=== PATIENT | female | born 1970 | race African-American/Black ===

== ENCOUNTER 2021-02-07 16:43 | Emergency (ER) | payer BC ==
--- OUTSIDE RECORDS SUMMARY | 2021-02-07 16:45 | XMS REPORT | Continuity of Care Document ---
:1970 Author Organization [facility] t Address [address] [place] [address] Care Team Providers Name Role Phone Jose Minaya RN Attending Clinician Unavailable Singer HARRIS Attending Clinician TINO Attending Clinician Unavailable Payers Payer Name Policy Type Policy Number Effective Date Expiration Date S lacy [facility] - [id number] 2020 00:00:00 OUT OF STATE Problems This patient has no known problems. Allergies, Adverse Reactions, Alerts Allergy Allergy Status Severity Reaction(s) Onset Inactive Treating Comm ents Source Name Type Date Date Clinician NO KNOWN Drug Active Univers ALLERGIE Class ity of S [facility] Social History Social Habit Start Date Stop Date Quantity Comments Source Sex Assigned At Uni versity [facility] Exposure to SARS-CoV-2 Not sure [facility] [place] (event) [facility] Smoking Status Start Date Stop Date Source Unknown if ever smoked Universit y [facility] Medications Ordered Filled Start Stop Current Ordering Indication Dosage Frequency Signature Comments Components Source Medication Medication Date Date Medication? Clinician (SIG) Name Name benzonatate Yes [id number] 100mg Take 1 Univers 100 mg 2-02 capsule by ity of capsule 00:00: mouth 3 [place] 00 (three) Medical times Branch daily as needed for Cough. chlorphenir Yes [id number] 4mg Take 1 Univers amine 4 mg 2-02 tablet by ity of tablet 00:00: mouth [place] 00 every 6 Medical (six) Branch hours as needed for Allergies or Runny nose. multivitami Yes [id number] 1{capsu Take 1 Univers n capsule 2-02 le} capsule by ity of 00:00: mouth [place] 00 daily. Medical Branch calcium-mag Yes [id number] Take as Univers nesium-zinc 2-02 directed ity of 333-133-8.3 00:00: for daily [place] mg Tab 00 dose. Medical Branch ondansetron Yes [id number] 4mg Take 1 Univers 4 mg 2-02 tablet by ity of disintegrat 00:00: mouth [place] ing tablet 00 every 8 Medica l (eight) Branch hours as needed for Nausea and Vomiting (N/V). benzonatate Yes [id number] 100mg Take 1 Univers 100 mg 2-02 capsule by ity of capsule 00:00: mouth 3 [place] 00 (three) Medical times Branch daily as needed for Cough. chlorphenir Yes [id number] 4mg Take 1 Univers amine 4 mg 2-02 tablet by ity of tablet 00:00: mouth [place] 00 every 6 Medical (six) Branch hours as needed for Allergies or Runny nose. multivitami Yes [id number] 1{capsu Take 1 Univers n capsule 2-02 le} capsule by ity of 00:00: mouth [place] 00 daily. Medical Branch calcium-mag Yes [id number] Take as Univers nesium-zinc 2-02 directed ity of 333-133-8.3 00:00: for daily [place] mg Tab 00 dose. Medical Branch ondansetron Yes [id number] 4mg Take 1 Univers 4 mg 2-02 tablet by ity of disintegrat 00:00: mouth [place] ing tablet 00 every 8 Medica l (eight) Branch hours as needed for Nausea and Vomiting (N/V). One Touch One Touch 2020- No Aleksandra one strip [facility] Verio Verio -01 05-13 [place] [facility] Oscal Oscal Yes Aleksandra [address] [facility] 500/200 D-3 500/200 D-3 [place] with food [facility] Potassium Potassium Yes Aleksandra not [facility] Gluconate Gluconate [place] defined [facility] Trazodone Trazodone Yes Aleksandra [address] [facility] HCl HCl [place] at bedtime [facility] - as needed [facility] Vitamin D-3 Vitamin D-3 Yes Aleksandra [address] [facility] [place] [facility] Hydrochloro Hydrochloro Yes Aleksandra [address] [facility] thiazide thiazide [place] in the Luke s - morning [facility] Vitamin C Vitamin C Yes Aleksandra not [facility] [place] defined [facility] Estradiol Estradiol Yes Aleksandra [address] [facility] [place] [facility] Multivitami Multivitami Yes Aleksandra not [facility] n n [place] defined [facility] Xyzal Xyzal Yes Aleksandra not [facility] [place] defined [facility] Vitamin E Vitamin E Yes Aleksandra [address] [facility] [place] [facility] Vital Signs Vital Name Observation Time Observation Value Comments Source Diastolic blood 2020-04-14 21:38:00 94 mm[Hg] [facility] Heart rate 2020-04-14 21:38:00 87 /min [facility] Body temperature 2020-04-14 21:38:00 36.94 Aaliyah [facility] Respiratory rate 2020-04-14 21:38:00 18 /min [facility] Body height 2020-04-14 21:38:00 162.6 cm [facility] Body weight 2020-04-14 21:38:00 97.977 kg [facility] BMI 2020-04-14 21:38:00 37.08 kg/m2 [facility] Oxygen saturation in 2020-04-14 21:38:00 98 /min [facility] Arterial blood by [facility] Pulse oximetry Branch Systolic blood 2020-04-14 21:38:00 145 mm[Hg] Univer [facility] of pressure [facility] Procedures Procedure Date / Time Performed Performing Clinician Sour e URINALYSIS 2020-04-14 22:08:00 Jose Cornelius [facility] POCT GLUCOSE 2020-04-14 21:34:00 Jose Cornelius [place] (AUTOMATED) [facility] NOTICE OF PRIVACY 2020-04-14 21:27:55 Doctor Unassigned, No Univ [facility] PRACTICES Name Medical Branch Encounters Start End Encounter Admission Attending Care Care Encounter Source Date/Time Date/Time Type Type Clinicians Facility Department ID 2021-01-09 Emergency [facility] [id number] Univers 21:22:00 ity of [facility] 2020-11-10 2020-11-10 Outpatient [facility] [id number] [facility] 2020-10-08 2020-10-08 Outpatient [facility] [id number] [facility] 2020-09-10 2020-09-10 Outpatient [facility] [id number] [facility] 2020-05-04 2020-05-04 Outpatient [facility] [id number] [facility] 2020-04-30 2020-04-30 Outpatient [facility] [id number] [facility] 2020-04-15 2020-04-15 Telephone HEIDY Minaya [id number] Univers 00:00:00 00:00:00 Catheirne MARTIN [id number] i ty of [facility] [id number] Apolinar as [id number] [facility] 019 Branch 2020-04-14 2020-04-14 Emergency Singer [facility] [id number] Univers 16:10:00 17:54:00 Jose Marino [id number] i ty of [place] [id number] [facility] [id number] [facility] 084 Branch 2020-04-14 2020-04-14 Outpatient R ANENE, [facility] [id number] Univers 17:00:00 17:00:[address] [facility] 2019-11-21 2019-11-21 [facility] [id number] [address] 09:09:00 09:09:00 t [email or web address] [facility] [facility] - [facility] Medicine l Medicine Outpati ent Clinics 2019-10-28 2019-10-28 [facility] [id number] 08:40:00 08:40:00 t [facility] [address] [facility] Medicine l Medicine Outpati ent Clinics 2019-05-01 2019-05-01 [facility] [id number] 15:05:00 15:05:00 t [facility] [address] [facility] Medicine l Medicine Outpati ent Clinics 2019-05-01 2019-05-01 [facility] [id number] 09[facility]40:00 09:40:00 t [facility] [address] [facility] Medicine l Medicine Outpati ent Clinics 2019-04-19 2019-04-19 [facility] [id number] 11:18:00 11:18:00 t [facility] [address] [facility] Medicine Outpati ent Clinics 2018-05-21 2018-05-21 [facility] [id number] 11:31:00 11:31:00 t [facility] [address] [facility] Medicine l Medicine Outpati ent Clinics 2018-05-03 2018-05-03 [facility] [id number] 16:44:00 16:44:00 t [facility] [address] [facility] Medicine Medicine Outpati ent Clinics 2018-04-30 2018-04-30 [facility] [id number] 08:30:00 08:30:00 t [facility] [address] [facility] Medicine l Medicine Outpati ent Clinics 2017-10-31 2017-10-31 [facility] [id number] 10:30:00 10:30:00 t [facility] Medicine l Medicine Outpati ent Clinics 2017-08-08 2017-08-08 Outpatient Marie Salazart [id number] 15:45:00 15:45:00 [facility] Outpat[facility] Clinics 2017-07-31 2017-07-31 Outpatient Marie Salazart [id number] 10:30:00 10:30:00 t [facility] Lu s - Road [facility] Results Test Description Test Time Test Comments Results Result Comments Source POCT GLUCOSE (AUTOMATED) 2020-04-14 23:18:00 Test Item Value Reference Range Interpretation Comme nts POCT GLU (test code = 4339566278) 87 mg/dL 70-110 Lab Interpretation (test code = 95731-6) Normal [facility] 22:58:00 Test Item Value Reference Range Interpretation Comments APPEARANCE (test code = Clear Clear 8459928194) COLOR (test code = Straw Yellow A 2965323573) PH (test code = 4.8-8.0 1179607187) SP GRAVITY (test code = 1.003-1.030 6048108647) GLU U QUAL (test code = Normal Normal 3501098821) BLOOD (test code = Negative Negative 3077005202) KETONES (test code = Negative Negative 8312449461) PROTEIN (test code = Negative Negative 2887-8) UROBILIN (test code = Normal Normal 2564570324) BILIRUBIN (test code = Negative Negative 4814083132) NITRITE (test code = Negative Negative 0078401998) LEUK OLENA (test code = Negative Negative 4023602192) RBC/HPF (test code = See_Comment [Autom ated message] 1787426248) The system HomeTouch generated this result transmitted ref erence range: 0 - 3 HP F. The reference range was not used to int erpret this result as normal/abnormal . WBC/HPF (test code = <1 See_Comment [Autom ated message] 3307320281) The system HomeTouch generated this result transmitted ref erence range: 0 - 5 HP F. The reference range was not used to int erpret this result as normal/abnormal . BACTERIA (test code = Few Negative A 8337157246) SQ EPITH (test code = HPF 9461695411) TRANS EPI (test code = <1 See_Comment [Aut omated message] 5436939881) The system HomeTouch generated this result transmitted ref erence range: <=1 HPF. The reference range was not used to int erpret this result as normal/abnormal . Lab Interpretation (test Abnormal code = 67028-9) [facility]
[2021-02-07 18:02] LABS: SARS-COV-2 RT PCR NEGATIVE (NEGATIVE)
--- NOTE | 2021-02-07 18:42 | RAD REPORT ---
EXAM DESCRIPTION: RAD - Chest Pa And Lat (2 Views) - 02/07/2021 5:59 pm CLINICAL HISTORY: Congestion;Cough Chest pain. COMPARISON: CHEST PA AND LAT 2 VIEW dated 01/07/2013; CHEST PA AND LAT 2 VIEW dated 07/01/2008; CHEST PA AND LAT 2 VIEW dated 01/19/2005 FINDINGS: Bilateral interstitial prominence is seen which could represent interstitial pulmonary carlos ma or mild interstitial pulmonary edema. The heart is upper limit of normal in size. No displaced fra ctures.
--- NOTE | 2021-02-07 18:50 | ER ---
Nurse's Notes [facility] Name: Greg Fragoso Age: 50 yrs Sex: Female : 1970 Arrival Date: 02/07/2021 Time: 16:44 Bed 10 Private MD: Aleksandra Boswell Diagnosis: Acute upper respiratory infection, unspecified Presentation: 02/07 17:01 Chief complaint: Patient states: cough, body aches , was prescribed Zithromax and iw Tessalon Perles, and cough medicine , symptoms X 1 week. Coronavirus screen: Client presents with at least one sign or symptom that may indicate coronavirus-19. Ebola Screen: Patient negative for fever greater than or equal to 101.5 degrees Fahrenheit, and additional compatible Ebola Virus Disease symptoms Patient denies exposure to infectious person. Patient denies travel to an Ebola-affected area in the 21 days before illness onset. No symptoms or risks identified at this time. Initial Sepsis Screen: Does the patient meet any 2 criteria? No. Patient's initial sepsis screen is negative. Does the patient have a suspected source of infection? No. Patient's initial sepsis screen is negative. Risk Assessment: Do you want to hurt yourself or someone else? Patient reports no desire to harm self or others. Onset of symptoms was January 31, 2021. 17:01 Method Of Arrival: Ambulatory iw 17:01 Acuity: JOHNIE 4 iw Historical: - Allergies: 17:03 No Known Allergies; iw - Home Meds: 17:03 hydrochlorothiazide 25 mg oral tab once daily [Active]; lisinopril 10 mg Oral tab 1 tab iw once daily [Active]; estradiol 1 mg Oral tab 1 tab once daily [Active]; - PMHx: 17:03 Hypertensive disorder; iw - PSHx: 17:03 hysterectomy; iw - Immunization history:: Client reports receiving the 2nd dose of the Covid vaccine. - Social history:: Smoking status: Patient denies any tobacco usage or history of. Vital Signs: 17:02 BP 126 / 79; Pulse 75; Resp 18; Temp 97.6; Pulse Ox 100% on R/A; Weight 93.44 kg; iw Height 5 ft. 4 in. (162.56 cm); 17:02 Body Mass Index 35.36 (93.44 kg, 162.56 cm) iw ED Course: 16:44 Patient arrived in ED. as 16:45 Aleksandra Boswell is Private Physician. as 16:59 [facility]ellan [facility]C [facility] kb 16:59 Alicia Morrissey MD is Attending Physician. kb 17:02 Triage completed. iw 17:04 Arm band placed on. iw 17:08 Yazmin Darling, RN is Primary Nurse. iw 17:58 Chest Pa And Lat (2 Views) XRAY In Process Unspecified. EDMS Administered Medications: No medications were administered Outcome: 18:49 Discharge ordered by . kb 19:01 Patient left the ED. iw Signatures: Dispatcher [employer] EDMS Lesa Capellan FNP-C FNP-Ludivina Haq as Yazmin Darling, RN RN iw Corrections: (The following items were deleted from the chart) 17:03 17:02 Pulse 75bpm; Resp 18bpm; Pulse Ox 100% RA; Temp 97.6F; iw iw
--- NOTE | 2021-02-07 18:50 | EDPHYS ---
Physician Documentation [facility] Name: Greg Fragoso Age: 50 yrs Sex: Female : 1970 Arrival Date: 02/07/2021 Time: 16:44 Bed 10 Private MD: Aleksandra Boswell ED Physician Alicia Morrissey HPI: 02/07 18:47 This 50 yrs old Black Female presents to ER via Ambulatory with complaints of Cough, kb Pain All Over, Headache. 18:47 The patient or guardian reports cough, that is intermittent, described as moderate. kb Onset: The symptoms/episode began/occurred 1 week(s) ago. Severity of symptoms: At their worst the symptoms were mild, in the emergency department the symptoms are unchanged. Modifying factors: The symptoms are alleviated by nothing, the symptoms are aggravated by nothing. Associated signs and symptoms: The patient has no apparent associated signs or symptoms. The patient has not experienced similar symptoms in the past. The patient has been recently seen at an urgent care. Pt reports cough and bodyaches for a week. States she was seen by and prescribed zithromax, tessalon perles and a cough medication with codeine but she hasn't gotten any better. Historical: - Allergies: 17:03 No Known Allergies; iw - Home Meds: 17:03 hydrochlorothiazide 25 mg oral tab once daily [Active]; lisinopril 10 mg Oral tab 1 tab iw once daily [Active]; estradiol 1 mg Oral tab 1 tab once daily [Active]; - PMHx: 17:03 Hypertensive disorder; iw - PSHx: 17:03 hysterectomy; iw - Immunization history:: Client reports receiving the 2nd dose of the Covid vaccine. - Social history:: Smoking status: Patient denies any tobacco usage or history of. ROS: 18:47 Cardiovascular: Negative for chest pain, palpitations, and edema. kb 18:47 Constitutional: Positive for body aches, Negative for chills, fatigue, fever, malaise, poor PO intake, weight loss. 18:47 Respiratory: Positive for cough, Negative for dyspnea on exertion, hemoptysis, orthopnea, pleurisy, shortness of breath, sputum production, wheezing. 18:47 All other systems are negative. Exam: 18:47 Constitutional: This is a well developed, well nourished patient who is awake, alert, kb and in no acute distress. Head/Face: Normocephalic, atraumatic. ENT: Moist Mucous membranes Cardiovascular: Regular rate and rhythm with a normal S1 and S2. No gallops, murmurs, or rubs. No pulse deficits. Respiratory: Respirations even and unlabored. No increased work of breathing, no retractions or nasal flaring. Skin: Warm, dry with normal turgor. Normal color. MS/ Extremity: Pulses equal, no cyanosis. Neurovascular intact. Full, normal range of motion. Neuro: Awake and alert, GCS 15, oriented to person, place, time, and situation. Moves all extremities. Normal gait. Psych: Awake, alert, with orientation to person, place and time. Behavior, mood, and affect are within normal limits. Vital Signs: 17:02 BP 126 / 79; Pulse 75; Resp 18; Temp 97.6; Pulse Ox 100% on R/A; Weight 93.44 kg; iw Height 5 ft. 4 in. (162.56 cm); 17:02 Body Mass Index 35.36 (93.44 kg, 162.56 cm) iw MDM: 16:59 Patient medically screened. kb 18:46 Data reviewed: vital signs, nurses notes. Data interpreted: Pulse oximetry: on room air kb is 100 %. Interpretation: normal. Counseling: I had a detailed discussion with the patient and/or guardian regarding: the historical points, exam findings, and any diagnostic results supporting the discharge/admit diagnosis, lab results, radiology results, the need for outpatient follow up, a family practitioner, to return to the emergency department if symptoms worsen or persist or if there are any questions or concerns that arise at home. 02/07 17:04 Order name: COVID-19/FLU A+B (Document "Date of Onset" if Symptomatic); Complete Time: kb 18:05 02/07 17:05 Order name: Chest Pa And Lat (2 Views) XRAY; Complete Time: 18:43 kb Administered Medications: No medications were administered Disposition: 02/08 09:19 Co-signature as Attending Physician, Alicia Morrissey MD I agree with the assessment and sp3 plan of care. Disposition Summary: 02/07/21 18:49 Discharge Ordered Location: Home kb Condition: Stable kb Diagnosis - Acute upper respiratory infection, unspecified kb Followup: kb - With: Emergency Department - When: As needed - Reason: Worsening of condition Followup: kb - With: Private Physician - When: 2 - 3 days - Reason: Recheck today's complaints, Continuance of care, Re-evaluation by your physician Discharge Instructions: - Discharge Summary Sheet kb - Upper Respiratory Infection, Adult, Zhcl-[id number] kb - Viral Respiratory Infection, Qall-Rj-Adgk kb Forms: - Medication Reconciliation Form kb - Thank You Letter kb - Antibiotic Education kb - Prescription Opioid Use kb Prescriptions: - Prednisone 20 mg Oral Tablet - take 1 tablet by ORAL route once daily for 5 days; 5 tablet; Refills: 0, kb Product Selection Permitted Signatures: Dispatcher [employer] Lesa Luna, RESOLUTE PROFESSIONAL-C ELMA-Yazmin Linda, RN Alicia Gramajo MD MD sp3
[2021-02-07 19:10] VITALS: BP 126/79; TEMP 97.6; O2SAT 100
== END 2021-02-07 19:01 | disposition home or self-care (01) ==
LOC: ER 16:43
DX: J06.9 Acute upper respiratory infection, unspecified (principal); I10 Essential (primary) hypertension; Z20.822 Contact with and (suspected) exposure to COVID-19
CPT/HCPCS: 0240U; 71046; 99282

== ENCOUNTER 2023-06-20 10:02 | Emergency (ER) | payer BC ==
--- OUTSIDE RECORDS SUMMARY | 2023-06-20 10:07 | XMS REPORT | Continuity of Care Document ---
Author Name Unknown Address [address] [facility] [address] [place] [address] [facility] thconnect Address [address] [facility] [address] [place] [address] Care Team Providers Care Chief Sustainability Officer Name Role Phone ALEKSANDRA GARAY Primary Care Physician Aleksandra Gonzalez Attending Clinician Unavailable [email or web address]_S Attending Clinician UnavailBRENNA Toscano Attending Clinician UnavailBrenna Ramirez DO Attending Clinician [phone] Catherine Minaya RN Attending Clinician UnavailJose Rice DO Attending Clinician [phone] KANU JIMÉNEZ Attending Clinician Unavailable [email or web address]_S Admitting Clinician Edith holcomb Payers Payer Name Policy Type Policy Number Effective Date Expirati on Date Source BC[place] OF [place] OUT OF STATE [id number] 2020 00:00:00 Blue Cross Blue [facility] [place] 6 [id number] 2021 00:00:00 [facility] [place] [id number] 2021 00:00:00 Blue Cross Blue Shield of [place] 6 [id number] 2020 00:00:00 [facility] Problems Condition Name Condition Details Condition Category Status Onset Date Resolution Date Last Treatment Date Treating Clinician Comments Source [id number] Anxiety about dying Problem [facility] [id number] Bipolar 1 disorder Problem [facility] [id number] Routine adult health maintenanc e Problem [facility] [id number] Back strain, initial encounter Problem [facility] [id number] BMI 34.0-34.9, adult Problem [facility] [id number] Environmen mike allergies Problem [facility] [id number] Abnormal TSH Problem [facility] Primary insomnia Primary insomnia Problem [facility] Essential hypertensi on Essential hypertensi on Problem [facility] Type 2 diabetes mellitus without complicati on Type 2 diabetes mellitus without complicati on, without long-term current use of insulin Problem [facility] Reactive depression Reactive depression Problem [facility] No known active problems No known active problems Disease [facility] Allergies, Adverse Reactions, Alerts Allergy Name Allergy Type Status Severity Reaction(s) Onset Date Inactive Date Treating Clinician Comments Source NO KNOWN ALLERGIE S Drug Class Active [facility] Social History Social Habit Start Date Stop Date Quantity Comments Source History of Tobacco Use [facility] Sex Assigned At [facility] Exposure to SARS-CoV-2 (event) Not sure [facility] Smoking Status Start Date Stop Date Source Never Smoker [facility] Unknown if ever smoked [facility] Medications Ordered Medication Name Filled Medication Name Start Date Stop Date Current Medication? Ordering Clinician Indication Dosage Frequency Signature (SIG) Comments Components Source Vraylar 3 MG Vraylar 3 MG 8-05 00:00: 00 No 1{capsu le} QD Vraylar 3 MG Vraylar 3 MG Vraylar 3 MG 2021-0 8-05 00:00: 00 No 1{capsu le} QD Vraylar 3 MG One Touch Verio n/s One Touch Verio n/s 2021-0 8-05 00:00: 00 10-10 00:00 :00 No QD One Touch Verio n/s One Touch Verio n/s One Touch Verio n/s 2021-0 8-05 00:00: 00 10-10 00:00 :00 No QD One Touch Verio n/s One Touch Verio n/s One Touch Verio n/s 2021-0 8-05 00:00: 00 10-10 00:00 :00 No QD One Touch Verio n/s Triamcinolo ne Acetonide 0.1 % Triamcinolo ne Acetonide 0.1 % 2021-0 09-24 00:00: 00 No 1{appli cation} BID Triamcinol one Acetonide 0.1 % Triamcinolo ne Acetonide 0.1 % Triamcinolo ne Acetonide 0.1 % 2021-0 09-24 00:00: 00 No 1{appli cation} BID Triamcinol one Acetonide 0.1 % Triamcinolo ne Acetonide 0.1 % Triamcinolo ne Acetonide 0.1 % 2021-0 15 00:00: 00 No 1{appli cation} BID Triamcinol one Acetonide 0.1 % Triamcinolo ne Acetonide 0.1 % Triamcinolo ne Acetonide 0.1 % 2021-0 09-24 00:00: 00 No 1{appli cation} BID Triamcinol one Acetonide 0.1 % Triamcinolo ne Acetonide 0.1 % Triamcinolo ne Acetonide 0.1 % 2021-0 09-24 00:00: 00 No 1{appli cation} BID Triamcinol one Acetonide 0.1 % Triamcinolo ne Acetonide 0.1 % Triamcinolo ne Acetonide 0.1 % 2021-0 15 00:00: 00 No 1{appli cation} BID Triamcinol one Acetonide 0.1 % Triamcinolo ne Acetonide 0.1 % Triamcinolo ne Acetonide 0.1 % 0 09-24 00:00: 00 No 1{appli cation} BID Triamcinol one Acetonide 0.1 % Triamcinolo ne Acetonide 0.1 % Triamcinolo ne Acetonide 0.1 % 0 09-24 00:00: 00 No 1{appli cation} BID Triamcinol one Acetonide 0.1 % Triamcinolo ne Acetonide 0.1 % Triamcinolo ne Acetonide 0.1 % 0 09-24 00:00: 00 No 1{appli cation} BID Triamcinol one Acetonide 0.1 % Triamcinolo ne Acetonide 0.1 % Triamcinolo ne Acetonide 0.1 % 09-24 00:00: 00 No 1{appli cation} BID Triamcinol one Acetonide 0.1 % Vraylar 1.5 & 3 MG Vraylar 1.5 & 3 MG - 00:00: 00 No QD Vraylar 1.5 & 3 MG Vraylar 3 MG Vraylar 3 MG 0 09-15 00:00: 00 No 1{capsu le} QD Vraylar 3 MG Vraylar 3 MG Vraylar 3 MG 0 09-15 00:00: 00 No 1{capsu le} QD Vraylar 3 MG Lisinopril 20 MG Lisinopril 20 MG 09-02 00:00: 00 No 1{table t} QD Lisinopril 20 MG ketorolac (TORADOL) injection 30 mg 2020-03 22:30: 00 03-07 21:55 :00 No 30mg 30 mg, Intramuscu lar, ONCE, 1 dose, On 03/07/21 at 1630, MARI [facility] Pseudoeph-B romphen-DM 30-2-10 MG/5ML Pseudoeph-B romphen-DM 30-2-10 MG/5ML 2020-03 2 00:00: 00 04-17 00:00 :00 No 5{ml_as _needed } QID Pseudoeph- Bromphen-D M 30-2-10 MG/5ML Ciprofloxac in HCl 500 MG Ciprofloxac in HCl 500 MG 2020-03 2- 00:00: 00 02-26 00:00 :00 No 1{table t} BID Ciprofloxa erica HCl 500 MG PARoxetine HCl 10 MG PARoxetine HCl 10 MG 8-31 00:00: 00 No 1{table t_in_th e_morni ng} QD PARoxetine HCl 10 MG Lisinopril- hydroCHLORO thiazide 20-25 MG Lisinopril- hydroCHLORO thiazide 20-25 MG 3-04 00:00: 00 No 1{table t} QD Lisinopril -hydroCHLO ROthiazide 20-25 MG Lisinopril- hydroCHLORO thiazide 20-25 MG Lisinopril- hydroCHLORO thiazide 20-25 MG 3-04 00:00: 00 No 1{table t} QD Lisinopril -hydroCHLO ROthiazide 20-25 MG benzonatate 100 mg capsule 04-14 00:00: 00 Yes [id number] 100mg Take 1 capsule by mouth 3 (three) times daily as needed for Cough. [facility] chlorphenir amine 4 mg tablet 04-14 00:00: 00 Yes [id number] 4mg Take 1 tablet by mouth every 6 (six) hours as needed for Allergies or Runny nose. [facility] multivitami n capsule 04-14 00:00: 00 Yes [id number] 1{capsu le} Take 1 capsule by mouth daily. [facility] calcium-mag nesium-zinc 333-133-8.3 mg Tab 04-14 00:00: 00 Yes [id number] Take as directed for daily dose. [facility] ondansetron 4 mg disintegrat ing tablet 04-14 00:00: 00 Yes [id number] 4mg Take 1 tablet by mouth every 8 (eight) hours as needed for Nausea and Vomiting (N/V). [facility] multivitami n capsule 04-14 00:00: 00 Yes [id number] 1{capsu le} Take 1 capsule by mouth daily. [facility] One Touch Verio One Touch Verio 2019-0 2-19 00:00: 00 04-25 00:00 :00 No Aleksandra Ariton one strip [facility] Kenalog (Triamcinol one) Kenalog (Triamcinol one) 08-08 00:00: 00 No 40mg [facility] Kenalog (Triamcinol one) Kenalog (Triamcinol one) 08-08 00:00: 00 No 40mg [facility] Kenalog (Triamcinol one) Kenalog (Triamcinol one) 08-08 00:00: 00 No 40mg [facility] Kenalog (Triamcinol one) Kenalog (Triamcinol one) 08-08 00:00: 00 No 40mg [facility] Kenalog (Triamcinol one) Kenalog (Triamcinol one) 08-08 00:00: 00 No 40mg [facility] Kenalog (Triamcinol one) Kenalog (Triamcinol one) 08-08 00:00: 00 No 40mg [facility] Kenalog (Triamcinol one) Kenalog (Triamcinol one) 08-08 00:00: 00 No 40mg [facility] Kenalog (Triamcinol one) Kenalog (Triamcinol one) 08-08 00:00: 00 No 40mg [facility] Kenalog (Triamcinol one) Kenalog (Triamcinol one) 08-08 00:00: 00 No 40mg [facility] Kenalog (Triamcinol one) Kenalog (Triamcinol one) 08-08 00:00: 00 No 40mg [facility] Kenalog (Triamcinol one) Kenalog (Triamcinol one) 08-08 00:00: 00 No 40mg [facility] Oscal 500/200 D-3 Oscal 500/200 D-3 Yes Aleksandra Ariton 1 tablet with food [facility] Potassium Gluconate Potassium Gluconate Yes Aleksandra Ariton not defined [facility] Trazodone HCl Trazodone HCl Yes Aleksandra Ariton 1 tablet at bedtime as needed [facility] Vitamin D-3 Vitamin D-3 Yes Aleksandra Ariton 1 capsule [facility] Hydrochloro thiazide Hydrochloro thiazide Yes Aleksandra Ariton 1 tablet in the morning [facility] Vitamin C Vitamin C Yes Aleksandra Ariton not defined [facility] Estradiol Estradiol Yes Aleksandra Ariton 1 tablet [facility] Multivitami n Multivitami n Yes Aleksandra Ariton not defined [facility] Xyzal Xyzal Yes Aleksandra Ariton not defined [facility] Vitamin E Vitamin E Yes Aleksandra Ariton 1 capsule [facility] Multivitami n - Multivitami n - No Multivitam in - Potassium Gluconate 80 MG Potassium Gluconate 80 MG No Potassium Gluconate 80 MG Vitamin E 100 UNIT Vitamin E 100 UNIT No 1{capsu le} QD Vitamin E 100 UNIT Vitamin C 500 MG Vitamin C 500 MG No Vitamin C 500 MG Estradiol 2 MG Estradiol 2 MG No 1{table t} QD Estradiol 2 MG traZODone HCl 300 MG traZODone HCl 300 MG No 1{table t_at_be dtime} QD traZODone HCl 300 MG Vitamin E 100 UNIT Vitamin E 100 UNIT No 1{capsu le} QD Vitamin E 100 UNIT Estradiol 1 MG Estradiol 1 MG No 1{table t} QD Estradiol 1 MG Venlafaxine HCl 50 MG Venlafaxine HCl 50 MG No 1{table t_with_ food} QD Venlafaxin e HCl 50 MG Vitamin E 100 UNIT Vitamin E 100 UNIT No 1{capsu le} QD Vitamin E 100 UNIT Vitamin C 500 MG Vitamin C 500 MG No Vitamin C 500 MG Potassium Gluconate 80 MG Potassium Gluconate 80 MG No Potassium Gluconate 80 MG traZODone HCl 300 MG traZODone HCl 300 MG No 1{table t_at_be dtime} QD traZODone HCl 300 MG Estradiol 1 MG Estradiol 1 MG No 1{table t} QD Estradiol 1 MG Venlafaxine HCl 50 MG Venlafaxine HCl 50 MG No 1{table t_with_ food} QD Venlafaxin e HCl 50 MG Vitamin E 100 UNIT Vitamin E 100 UNIT No 1{capsu le} QD Vitamin E 100 UNIT Lisinopril- hydroCHLORO thiazide 20-25 MG Lisinopril- hydroCHLORO thiazide 20-25 MG No Lisinopril -hydroCHLO ROthiazide 20-25 MG Potassium Gluconate 80 MG Potassium Gluconate 80 MG No Potassium Gluconate 80 MG Vitamin E 100 UNIT Vitamin E 100 UNIT No 1{capsu le} QD Vitamin E 100 UNIT Vitamin C 500 MG Vitamin C 500 MG No Vitamin C 500 MG Estradiol 1 MG Estradiol 1 MG No 1{table t} QD Estradiol 1 MG Lisinopril 20 MG Lisinopril 20 MG No Lisinopril 20 MG Vraylar 3 MG Vraylar 3 MG No Vraylar 3 MG Lisinopril- hydroCHLORO thiazide 20-25 MG Lisinopril- hydroCHLORO thiazide 20-25 MG No Lisinopril -hydroCHLO ROthiazide 20-25 MG Vitamin C 500 MG Vitamin C 500 MG No Vitamin C 500 MG Vitamin E 100 UNIT Vitamin E 100 UNIT No 1{capsu le} QD Vitamin E 100 UNIT Lisinopril 20 MG Lisinopril 20 MG No Lisinopril 20 MG Estradiol 1 MG Estradiol 1 MG No 1{table t} QD Estradiol 1 MG Potassium Gluconate 80 MG Potassium Gluconate 80 MG No Potassium Gluconate 80 MG Vitamin E 100 UNIT Vitamin E 100 UNIT No 1{capsu le} QD Vitamin E 100 UNIT Vitamin D-3 1000 UNIT Vitamin D-3 1000 UNIT No 1{capsu le} QD Vitamin D-3 1000 UNIT Estradiol 1 MG Estradiol 1 MG No 1{table t} QD Estradiol 1 MG Lisinopril- hydroCHLORO thiazide 20-25 MG Lisinopril- hydroCHLORO thiazide 20-25 MG No Lisinopril -hydroCHLO ROthiazide 20-25 MG Vraylar 3 MG Vraylar 3 MG No Vraylar 3 MG Vitamin C 500 MG Vitamin C 500 MG No Vitamin C 500 MG Potassium Gluconate 80 MG Potassium Gluconate 80 MG No Potassium Gluconate 80 MG Lisinopril 20 MG Lisinopril 20 MG No Lisinopril 20 MG Estradiol 1 MG Estradiol 1 MG No 1{table t} QD Estradiol 1 MG OneTouch Delica Plus [id number] - OneTouch Delica Plus [id number] - No OneTouch Delica Plus [id number] - Potassium Gluconate 80 MG Potassium Gluconate 80 MG No Potassium Gluconate 80 MG OneTouch Ultra - OneTouch Ultra - No OneTouch Ultra - Lisinopril- hydroCHLORO thiazide 20-25 MG Lisinopril- hydroCHLORO thiazide 20-25 MG No Lisinopril -hydroCHLO ROthiazide 20-25 MG Xyzal Xyzal No Xyzal Lisinopril 20 MG Lisinopril 20 MG No Lisinopril 20 MG Vitamin C 500 MG Vitamin C 500 MG No Vitamin C 500 MG Vitamin E 100 UNIT Vitamin E 100 UNIT No 1{capsu le} QD Vitamin E 100 UNIT Vraylar 3 MG Vraylar 3 MG No Vraylar 3 MG Estradiol 1 MG Estradiol 1 MG No 1{table t} QD Estradiol 1 MG OneTouch Delica Plus [id number] - OneTouch Delica Plus [id number] - No OneTouch Delica Plus [id number] - Potassium Gluconate 80 MG Potassium Gluconate 80 MG No Potassium Gluconate 80 MG OneTouch Ultra - OneTouch Ultra - No OneTouch Ultra - Lisinopril- hydroCHLORO thiazide 20-25 MG Lisinopril- hydroCHLORO thiazide 20-25 MG No Lisinopril -hydroCHLO ROthiazide 20-25 MG Xyzal Xyzal No Xyzal Lisinopril 20 MG Lisinopril 20 MG No Lisinopril 20 MG Vitamin C 500 MG Vitamin C 500 MG No Vitamin C 500 MG Vitamin E 100 UNIT Vitamin E 100 UNIT No 1{capsu le} QD Vitamin E 100 UNIT Vraylar 3 MG Vraylar 3 MG No Vraylar 3 MG Estradiol 1 MG Estradiol 1 MG No 1{table t} QD Estradiol 1 MG OneTouch Delica Plus [id number] - OneTouch Delica Plus [id number] - No OneTouch Delica Plus [id number] - Potassium Gluconate 80 MG Potassium Gluconate 80 MG No Potassium Gluconate 80 MG OneTouch Ultra - OneTouch Ultra - No OneTouch Ultra - Lisinopril- hydroCHLORO thiazide 20-25 MG Lisinopril- hydroCHLORO thiazide 20-25 MG No Lisinopril -hydroCHLO ROthiazide 20-25 MG Xyzal Xyzal No Xyzal Lisinopril 20 MG Lisinopril 20 MG No Lisinopril 20 MG Vitamin C 500 MG Vitamin C 500 MG No Vitamin C 500 MG Vitamin E 100 UNIT Vitamin E 100 UNIT No 1{capsu le} QD Vitamin E 100 UNIT Vraylar 3 MG Vraylar 3 MG No Vraylar 3 MG Estradiol 1 MG Estradiol 1 MG No 1{table t} QD Estradiol 1 MG OneTouch Delica Plus [id number] - OneTouch Delica Plus Iaiqqr39C - No OneTouch Delica Plus [id number] - Potassium Gluconate 80 MG Potassium Gluconate 80 MG No Potassium Gluconate 80 MG OneTouch Ultra - OneTouch Ultra - No OneTouch Ultra - Lisinopril- hydroCHLORO thiazide 20-25 MG Lisinopril- hydroCHLORO thiazide 20-25 MG No Lisinopril -hydroCHLO ROthiazide 20-25 MG Xyzal Xyzal No Xyzal Lisinopril 20 MG Lisinopril 20 MG No Lisinopril 20 MG Vitamin C 500 MG Vitamin C 500 MG No Vitamin C 500 MG Vitamin E 100 UNIT Vitamin E 100 UNIT No 1{capsu le} QD Vitamin E 100 UNIT Vraylar 3 MG Vraylar 3 MG No Vraylar 3 MG Lisinopril 20 MG Lisinopril 20 MG No QD Lisinopril 20 MG Vitamin D-3 1000 UNIT Vitamin D-3 1000 UNIT No 1{capsu le} QD Vitamin D-3 1000 UNIT Potassium Gluconate 80 MG Potassium Gluconate 80 MG No Potassium Gluconate 80 MG Vitamin E 100 UNIT Vitamin E 100 UNIT No 1{capsu le} QD Vitamin E 100 UNIT Vitamin C 500 MG Vitamin C 500 MG No Vitamin C 500 MG OneTouch Delica Plus [id number] - OneTouch Delica Plus [id number] - No OneTouch Delica Plus Qbymte16H - Vraylar 3 MG Vraylar 3 MG No Vraylar 3 MG Estradiol 0.05 MG/24HR Estradiol 0.05 MG/24HR No 1{patch _to_ski n} QD Estradiol 0.05 MG/24HR Lisinopril- hydroCHLORO thiazide 20-25 MG Lisinopril- hydroCHLORO thiazide 20-25 MG No QD Lisinopril -hydroCHLO ROthiazide 20-25 MG OneTouch Ultra - OneTouch Ultra - No OneTouch Ultra - Lisinopril 20 MG Lisinopril 20 MG No QD Lisinopril 20 MG Vitamin D-3 1000 UNIT Vitamin D-3 1000 UNIT No 1{capsu le} QD Vitamin D-3 1000 UNIT Potassium Gluconate 80 MG Potassium Gluconate 80 MG No Potassium Gluconate 80 MG Vitamin E 100 UNIT Vitamin E 100 UNIT No 1{capsu le} QD Vitamin E 100 UNIT Vitamin C 500 MG Vitamin C 500 MG No Vitamin C 500 MG OneTouch Delica Plus Hkhjzy69Y - OneTouch Delica Plus Pbfujx51T - No OneTouch Delica Plus Cbqevr88U - Vraylar 3 MG Vraylar 3 MG No Vraylar 3 MG Estradiol 0.05 MG/24HR Estradiol 0.05 MG/24HR No 1{patch _to_ski n} QD Estradiol 0.05 MG/24HR Lisinopril- hydroCHLORO thiazide 20-25 MG Lisinopril- hydroCHLORO thiazide 20-25 MG No QD Lisinopril -hydroCHLO ROthiazide 20-25 MG OneTouch Ultra - OneTouch Ultra - No OneTouch Ultra - Immunizations Ordered Immunization Name Filled Immunization Name Date Status Comments Source Flucelvax - multidose vial Flucelvax - multidose vial 2021-12-13 08:27:00 Completed [facility] Flucelvax - multidose vial Flucelvax - multidose vial 2021-12-13 08:27:00 Completed [facility] Flucelvax - multidose vial Flucelvax - multidose vial 2021-12-13 08:27:00 Completed [facility] Fluzone Fluzone 2018-12-26 20:07:00 Completed [facility] Fluzone Fluzone 2018-12-26 20:07:00 Completed [facility] Fluzone Fluzone 2018-12-26 20:07:00 Completed [facility] Fluzone Fluzone 2018-12-26 20:07:00 Completed [facility] Fluzone Fluzone 2018-12-26 20:07:00 Completed [facility] Fluzone Fluzone 2018-12-26 20:07:00 Completed [facility] Fluzone Fluzone 2018-12-26 20:07:00 Completed [facility] Fluzone Fluzone 2018-12-26 20:07:00 Completed [facility] Fluzone Fluzone 2018-12-26 20:07:00 Completed [facility] Fluzone Fluzone 2018-12-26 20:07:00 Completed [facility] Fluzone Fluzone 2018-12-26 20:07:00 Completed [facility] Fluzone Fluzone 2018-12-26 20:07:00 Completed [facility] Fluzone Fluzone 2018-12-26 20:07:00 Completed [facility] Fluzone Fluzone 2018-12-26 20:07:00 Completed [facility] Fluzone Fluzone 2018-12-26 20:07:00 Completed [facility] Fluzone Fluzone 2018-12-26 20:07:00 Completed [facility] Kenalog (Triamcinolone) Kenalog (Triamcinolone) 2017-08-08 17:12:00 Completed [facility] Flucelvax - multidose vial Flucelvax - multidose vial Unknown Completed [facility] Fluzone Fluzone Unknown Completed [facility] Flucelvax - multidose vial Flucelvax - multidose vial Unknown Completed [facility] Fluzone Fluzone Unknown Completed [facility] Flucelvax - multidose vial Flucelvax - multidose vial Unknown Completed [facility] Fluzone Fluzone Unknown Completed [facility] Flucelvax (ccIIV4) - MDV - 0.5mL Flucelvax (ccIIV4) - MDV - 0.5mL Unknown Completed [facility] Fluzone Fluzone Unknown Completed [facility] Flucelvax (ccIIV4) - MDV - 0.5mL Flucelvax (ccIIV4) - MDV - 0.5mL Unknown Completed [facility] Fluzone Fluzone Unknown Completed [facility] Flucelvax (ccIIV4) - MDV - 0.5mL Flucelvax (ccIIV4) - MDV - 0.5mL Unknown Completed [facility] Fluzone Fluzone Unknown Completed [facility] Vital Signs Vital Name Observation Time Observation Value Comments S ource height 2023-03-14 08:20:00 65.25 [in_i] Com [facility] weight 2023-03-14 08:20:00 181.0 [lb_av] [facility] temperature 2023-03-14 08:20:00 97.5 [degF] Com [facility] bmi 2023-03-14 08:20:00 29.89 kg/m2 Comm [facility] oximetry 2023-03-14 08:20:00 99 % Com[facility] respiratory rate 2023-03-14 08:20:00 16 /min [facility] blood pressure systolic 2023-03-14 08:20:00 122 mm[Hg] [facility] blood pressure diastolic 2023-03-14 08:20:00 64 mm[Hg] [facility] height 2022-11-11 08:40:00 65.25 [in_i] Com [facility] weight 2022-11-11 08:40:00 187.8 [lb_av] Co [facility] temperature 2022-11-11 08:40:00 97.2 [degF] Com [facility] bmi 2022-11-11 08:40:00 31.01 kg/m2 Comm on [facility] oximetry 2022-11-11 08:40:00 98 % [facility] respiratory rate 2022-11-11 08:40:00 15 /min [facility] blood pressure systolic 2022-11-11 08:40:00 105 mm[Hg] Common [facility] blood pressure diastolic 2022-11-11 08:40:00 61 mm[Hg] [facility] height 2022-07-14 16:00:00 65.25 [in_i] Com [facility] weight 2022-07-14 16:00:00 209.8 [lb_av] Co [facility] temperature 2022-07-14 16:00:00 97.3 [degF] Com [facility] bmi 2022-07-14 16:00:00 34.64 kg/m2 Comm on [facility] oximetry 2022-07-14 16:00:00 100 % [facility] respiratory rate 2022-07-14 16:00:00 15 /min [facility] blood pressure systolic 2022-07-14 16:00:00 107 mm[Hg] [facility] blood pressure diastolic 2022-07-14 16:00:00 63 mm[Hg] [facility] height 2022-04-19 08:00:00 65.25 [in_i] Com [facility] weight 2022-04-19 08:00:00 218.6 [lb_av] [facility] temperature 2022-04-19 08:00:00 97.3 [degF] Com [facility] bmi 2022-04-19 08:00:00 36.09 kg/m2 Comm on [facility] oximetry 2022-04-19 08:00:00 98 % [facility] respiratory rate 2022-04-19 08:00:00 15 /min [facility] blood pressure systolic 2022-04-19 08:00:00 119 mm[Hg] [facility] blood pressure diastolic 2022-04-19 08:00:00 61 mm[Hg] [facility] height 2022-01-17 08:00:00 65.25 [in_i] Com [facility] weight 2022-01-17 08:00:00 216.2 [lb_av] Co [facility] temperature 2022-01-17 08:00:00 97.3 [degF] Com [facility] bmi 2022-01-17 08:00:00 35.7 kg/m2 Com[facility] oximetry 2022-01-17 08:00:00 100 % [facility] respiratory rate 2022-01-17 08:00:00 17 /min [facility] blood pressure systolic 2022-01-17 08:00:00 108 mm[Hg] [facility] blood pressure diastolic 2022-01-17 08:00:00 68 mm[Hg] [facility] height 2021-10-15 09:00:00 65.25 [in_i] Com [facility] weight 2021-10-15 09:00:00 209.6 [lb_av] Co [facility] temperature 2021-10-15 09:00:00 97.8 [degF] Com [facility] bmi 2021-10-15 09:00:00 34.61 kg/m2 Comm on [facility] oximetry 2021-10-15 09:00:00 98 % Com[facility] respiratory rate 2021-10-15 09:00:00 16 /min [facility] blood pressure systolic 2021-10-15 09:00:00 109 mm[Hg] [facility] blood pressure diastolic 2021-10-15 09:00:00 63 mm[Hg] [facility] height 2021-09-15 08:20:00 65.25 [in_i] Com [facility] weight 2021-09-15 08:20:00 206.2 [lb_av] Co [facility] temperature 2021-09-15 08:20:00 97.3 [degF] Com [facility] bmi 2021-09-15 08:20:00 34.05 kg/m2 Comm [facility] oximetry 2021-09-15 08:20:00 99 % Commo [facility] respiratory rate 2021-09-15 08:20:00 16 /min [facility] blood pressure systolic 2021-09-15 08:20:00 115 mm[Hg] [facility] blood pressure diastolic 2021-09-15 08:20:00 62 mm[Hg] Common [facility] height 2021-09-02 08:40:00 65.25 [in_i] Com [facility] weight 2021-09-02 08:40:00 207.8 [lb_av] Co [facility] temperature 2021-09-02 08:40:00 97.3 [degF] Com [facility] bmi 2021-09-02 08:40:00 34.31 kg/m2 Comm on [facility] oximetry 2021-09-02 08:40:00 96 % Commo n [facility] respiratory rate 2021-09-02 08:40:00 16 /min Common [facility] blood pressure systolic 2021-09-02 08:40:00 110 mm[Hg] [facility] blood pressure diastolic 2021-09-02 08:40:00 62 mm[Hg] [facility] height 2021-06-14 10:00:00 65.25 [in_i] Com [facility] weight 2021-06-14 10:00:00 208 [lb_av] Comm on [facility] temperature 2021-06-14 10:00:00 97.2 [degF] Com [facility] bmi 2021-06-14 10:00:00 34.34 kg/m2 Comm on [facility] oximetry 2021-06-14 10:00:00 97 % Commo n [facility] respiratory rate 2021-06-14 10:00:00 16 /min [facility] blood pressure systolic 2021-06-14 10:00:00 117 mm[Hg] [facility] blood pressure diastolic 2021-06-14 10:00:00 66 mm[Hg] [facility] height 2021-05-11 08:00:00 65.25 [in_i] Com [facility] weight 2021-05-11 08:00:00 206 [lb_av] Comm on [facility] temperature 2021-05-11 08:00:00 97.5 [degF] Com [facility] bmi 2021-05-11 08:00:00 34.01 kg/m2 Comm on [facility] oximetry 2021-05-11 08:00:00 99 % Commo n [facility] respiratory rate 2021-05-11 08:00:00 16 /min Common [facility] blood pressure systolic 2021-05-11 08:00:00 119 mm[Hg] [facility] blood pressure diastolic 2021-05-11 08:00:00 69 mm[Hg] [facility] Systolic blood pressure 2021-03-07 20:10:00 124 mm[Hg] [facility] Diastolic blood pressure 2021-03-07 20:10:00 87 mm[Hg] [facility] Heart rate 2021-03-07 20:10:00 80 /[facility] 2021-03-07 20:10:00 36.67 Aaliyah [facility] Respiratory rate 2021-03-07 20:10:00 18 /min [facility] Body weight 2021-03-07 20:10:00 96.389 kg [facility] BMI 2021-03-07 20:10:00 36.48 kg/m2 [facility] Oxygen saturation in Arterial blood by Pulse oximetry 2021-03-07 20:10:00 99 /min [facility] height 2021-02-16 11:40:00 65.25 [in_i] Com [facility] weight 2021-02-16 11:40:00 205 [lb_av] Comm on [facility] bmi 2021-02-16 11:40:00 33.85 kg/m2 Comm on [facility] height 2020-11-10 13:20:00 65.25 [in_i] Com mon [facility] weight 2020-11-10 13:20:00 213 [lb_av] Comm on [facility] temperature 2020-11-10 13:20:00 98.2 [degF] Com [facility] bmi 2020-11-10 13:20:00 35.17 kg/m2 Comm on [facility] oximetry 2020-11-10 13:20:00 98 % Commo n [facility] respiratory rate 2020-11-10 13:20:00 16 /min [facility] blood pressure systolic 2020-11-10 13:20:00 102 mm[Hg] [facility] blood pressure diastolic 2020-11-10 13:20:00 55 mm[Hg] [facility] Systolic blood pressure 2020-04-14 21:38:00 145 mm[Hg] [facility] Diastolic blood pressure 2020-04-14 21:38:00 94 mm[Hg] [facility] Heart rate 2020-04-14 21:38:00 87 /min [facility] Body temperature 2020-04-14 21:38:00 36.94 Aaliyah [facility] Respiratory rate 2020-04-14 21:38:00 18 /min [facility] Body height 2020-04-14 21:38:00 162.6 cm [facility] Body weight 2020-04-14 21:38:00 97.977 kg [facility] BMI 2020-04-14 21:38:00 37.08 kg/m2 [facility] Oxygen saturation in Arterial blood by Pulse oximetry 2020-04-14 21:38:00 98 /min [facility] Procedures Procedure Date / Time Performed Performing Clinicia n Source TROPONIN I 2021-03-07 21:55:00 [facility] MET[facility]OLIC PAN[facility] (37562) 2021-03-07 21:55:00 Brenna Santa [facility] CBC WITH DIFF 2021-03-07 21:55:00 [facility] ASSIGNMENT OF BENEFITS 2021-03-07 21:06:05 Docto r Unassigned, [place] [facility] CONSENT/REFUSAL FOR DIAGNOSIS AND TREATMENT 2021-03-07 20:01:19 Doctor Unassigned, [place] [facility] URINALYSIS 2020-04-14 22:08:00 Jose Cornelius [facility] POCT GLUCOSE (AUTOMATED) 2020-04-14 21:34:00 Jose Cornelius [facility] NOTICE OF PRIVACY PRACTICES 2020-04-14 21:27:55 Doctor Unassigned, [place] [facility] Encounters Start Date/Time End Date/Time Encounter Type Admission Type Attending [facility] Care Facility Care Department Encounter ID Source 2022-04-15 09:42:00 Outpatient Aleksandra Garay ST[facility] [id number] [facility] 2022-01-13 16:23:00 Outpatient Aleksandra Garay [facility] [id number] [facility] 2021-10-13 07:49:00 Outpatient Aleksandra Garay ST[facility] [id number] [facility] 2021-09-16 08:25:00 Outpatient Aleksandra Garay [facility] [id number] [facility] 2021-09-15 08:15:01 Outpatient Aleksandra Garay [facility] [id number] [facility] 2021-06-10 08:09:01 Outpatient Aleksandra Garay [facility] [id number] [facility] 2021-04-07 11:06:27 Outpatient Aleksanrda Garay [facility] [id number] [facility] 2021-01-09 21:22:00 Emergency [facility] [id number] [facility] 2023-04-28 00:00:00 2023-04-28 00:00:00 (TEL) STJOHNLC STLC [id number] [facility] 2023-03-14 00:00:00 2023-03-14 00:00:00 OFFICE VISIT ESTAB PT LEVEL 3 STLMLC STLC [id number] [facility] 2023-01-27 00:00:00 2023-01-27 00:00:00 Outpatient GC_GCBZW_Ka diyala_S PRIV PRIV [id number] [facility] 2023-01-11 00:00:00 2023-01-11 00:00:00 Outpatient GC_GCBZW_Ka diyala_S PRIV PRIV [id number] [facility] 2023-01-11 00:00:00 2023-01-11 00:00:00 Outpatient GC_GCBZW_Ka peytonS [facility] PRIV [id number] [facility] 2022-11-11 00:00:00 2022-11-11 00:00:00 OFFICE VISIT ESTAB PT LEVEL 3 STLMLC STLMLC [id number] [facility] 2022-08-29 00:00:00 2022-08-29 00:00:00 (TEL) STLMLC STLMLC [id number] [facility] 2022-07-14 00:00:00 2022-07-14 00:00:00 OFFICE VISIT ESTAB PT LEVEL 3 STLMLC STLMLC [id number] [facility] 2022-05-10 00:00:00 2022-05-10 00:00:00 (TEL) STLMLC STLMLC [id number] [facility] 2022-04-19 00:00:00 2022-04-19 00:00:00 OFFICE VISIT ESTAB PT LEVEL 4 STLMLC STLMLC [id number] [facility] 2022-01-17 00:00:00 2022-01-17 00:00:00 OFFICE VISIT EST PT LEVEL 3 STLMLC STLMLC [id number] [facility] 2021-10-15 00:00:00 2021-10-15 00:00:00 OFFICE VISIT ESTAB PT LEVEL 4 STLMLC STLMLC [id number] [facility] 2021-10-07 00:00:00 2021-10-07 00:00:00 (TEL) STLMLC STLMLC [id number] [facility] 2021-09-21 00:00:00 2021-09-21 00:00:00 (TEL) STLMLC STLMLC [id number] [facility] 2021-09-17 00:00:00 2021-09-17 00:00:00 (TEL) STLMLC STLMLC [id number] [facility] 2021-09-15 00:00:00 2021-09-15 00:00:00 OFFICE VISIT EST PT LEVEL 3 STLMLC STLMLC [id number] [facility] 2021-09-02 00:00:00 2021-09-02 00:00:00 OFFICE VISIT EST PT LEVEL 3 STLMLC STLMLC [id number] [facility] 2021-08-31 00:00:00 2021-08-31 00:00:00 (TEL) STLMLC STLMLC [id number] [facility] 2021-06-14 00:00:00 2021-06-14 00:00:00 OFFICE VISIT EST PT LEVEL 3 STLMLC STLMLC [id number] [facility] 2021-05-11 00:00:00 2021-05-11 00:00:00 PREV VISIT EST AGE 40-64 STLMLC STLMLC [id number] [facility] 2021-04-30 00:00:00 2021-04-30 00:00:00 (TEL) STLMLC STLMLC [id number] [facility] 2021-04-02 00:00:00 2021-04-02 00:00:00 (TEL) STLMLC STLMLC [id number] [facility] 2021-03-07 14:17:00 2021-03-07 16:51:00 Emergency X [facility] ERT [id number] [facility] 2021-03-07 14:17:00 2021-03-07 16:51:00 Emergency Brenna Santa [facility] [id number] [facility] 2021-02-16 00:00:00 2021-02-16 00:00:00 OFFICE VISIT EST PT LEVEL 3 STLMLC STLMLC [id number] [facility] 2021-02-15 00:00:00 2021-02-15 00:00:00 (TEL) STLMLC STLMLC [id number] [facility] 2020-11-10 00:00:00 2020-11-10 00:00:00 OFFICE VISIT EST PT LEVEL 3 STLMLC STLMLC [id number] [facility] 2020-10-08 00:00:00 2020-10-08 00:00:00 Outpatient STLMLC STLMLC [id number] [facility] 2020-09-10 00:00:00 2020-09-10 00:00:00 Outpatient STLMLC STLMLC [id number] [facility] 2020-05-04 00:00:00 2020-05-04 00:00:00 Outpatient STLMLC STLMLC [id number] [facility] 2020-04-30 00:00:00 2020-04-30 00:00:00 Outpatient STLMLC STLMLC [id number] [facility] 2020-04-15 00:00:00 2020-04-15 00:00:00 Telephone Catherine Minaya [facility] [id number] [facility] 2020-04-14 16:10:00 2020-04-14 17:54:00 Emergency Jose Cornelius [facility] [id number] [facility] 2020-04-14 17:00:00 2020-04-14 17:00:00 Outpatient KANU ZACARIAS [facility] [id number] [facility] 2019-11-21 09:09:00 2019-11-21 09:09:00 Outpatient Jesusospor colton Walker [facility] Medicine [facility] Medicine [id number] [facility] 2019-10-28 08:40:00 2019-10-28 08:40:[address] [id number] [facility] 2019-05-01 15:05:00 2019-05-01 15:05:[address] [facility] [facility] [address] [id number] [facility] 2019-05-01 09:40:00 2019-05-01 09:40:[address] [facility] [address] [facility] [id number] [facility] 2019-04-19 11:18:00 2019-04-19 11:18:00 [facility] [facility] [address] [facility] [id number] [facility] 2018-05-21 11:31:00 2018-05-21 11:31:[address] [facility] [facility] [address] [facility] [id number] [facility] 2018-05-03 16:44:00 2018-05-03 16:44:[address] [facility] [facility] [address] [facility] [id number] [facility] 2018-04-30 08:30:00 2018-04-30 08:30:00 Outpatient [facility] [id number] [facility] 2017-10-31 10:30:00 2017-10-31 10:30:[address] [facility] [id number] [facility] 2017-08-08 15:45:00 2017-08-08 15:45:00 [facility] [id number] [facility] 2017-07-31 10:30:00 2017-07-31 10:30:[address] [facility] [id number] [facility] Results Test Description Test Time Test Comments Results Result Co mments Source HEMOGLOBIN [id number] 00:00:00* Test Item Value Reference Range Interpretation Comme nts HEMOGLOBIN A1c (test code = 4548-4) 5.7 % of total Hgb See_Comment H [Automated message] The system which generated this result transmitted reference range: <5.7 % of total Hgb. The reference range was not used to interpret this result as normal/abnormal. CBC (INCLUDES DIFF/PLT)2022-07-18 00:00:00* Test Item Value Reference Range Interpretation Comme nts ABSOLUTE BASOPHILS (test code = 704-7) 9 cells/uL See_Comment N [Automated m essage] The system which generated this result transmitted reference range: 0-200 cells/uL. The reference range was not used to interpret this result as normal/abnormal. ABSOLUTE EOSINOPHILS (test code = 711-2) 50 cells/uL See_Comment N [Automated m essage] The system which generated this result transmitted reference range: 15-500 cells/uL. The reference range was not used to interpret this result as normal/abnormal. ABSOLUTE LYMPHOCYTES (test code = 731-0) 2007 cells/uL See_Comment N [Automated m essage] The system which generated this result transmitted reference range: 850-3900 cells/uL. The reference range was not used to interpret this result as normal/abnormal. ABSOLUTE MONOCYTES (test code = 742-7) 293 cells/uL See_Comment N [Automated m essage] The system which generated this result transmitted reference range: 200-950 cells/uL. The reference range was not used to interpret this result as normal/abnormal. ABSOLUTE NEUTROPHILS (test code = 751-8) 2142 cells/uL See_Comment N [Automated m essage] The system which generated this result transmitted reference range: 0454-2188 cells/uL. The reference range was not used to interpret this result as normal/abnormal. BASOPHILS (test code = 706-2) 0.2 % N EOSINOPHILS (test code = 713-8) 1.1 % N HEMATOCRIT (test code = 4544-3) 38.4 % See_Comment N [Automated messa ge] The system which generated this result transmitted reference range: 35.0-45.0 %. The reference range was not used to interpret this result as normal/abnormal. HEMOGLOBIN (test code = 718-7) 12.8 g/dL See_Comment N [Automated messa ge] The system which generated this result transmitted reference range: 11.7-15.5 g/dL. The reference range was not used to interpret this result as normal/abnormal. LYMPHOCYTES (test code = 736-9) 44.6 % N MCH (test code = 785-6) 30.8 pg See_Comment N [Automated messa ge] The system which generated this result transmitted reference range: 27.0-33.0 pg. The reference range was not used to interpret this result as normal/abnormal. MCHC (test code = 786-4) 33.3 g/dL See_Comment N [Automated messa ge] The system which generated this result transmitted reference range: 32.0-36.0 g/dL. The reference range was not used to interpret this result as normal/abnormal. MCV (test code = 787-2) 92.3 fL See_Comment N [Automated messa ge] The system which generated this result transmitted reference range: 80.0-100.0 fL. The reference range was not used to interpret this result as normal/abnormal. MONOCYTES (test code = 5905-5) 6.5 % N MPV (test code = 776-5) 11.7 fL See_Comment N [Automated messa ge] The system which generated this result transmitted reference range: 7.5-12.5 fL. The reference range was not used to interpret this result as normal/abnormal. NEUTROPHILS (test code = 770-8) 47.6 % N PLATELET COUNT (test code = 777-3) 282 Thousand/uL See_Comment N [Automated message] The system which generated this result transmitted reference range: 140-400 Thousand/uL. The reference range was not used to interpret this result as normal/abnormal. RDW (test code = 788-0) 12.3 % See_Comment N [Automated messa ge] The system which generated this result transmitted reference range: 11.0-15.0 %. The reference range was not used to interpret this result as normal/abnormal. RED BLOOD CELL COUNT (test code = 789-8) 4.16 Million/uL See_Comment N [Automated message] The system which generated this result transmitted reference range: 3.80-5.10 Million/uL. The reference range was not used to interpret this result as normal/abnormal. WHITE BLOOD CELL COUNT (test code = 6690-2) 4.5 Thousand/uL See_Comment N [Automated message] The system which generated this result transmitted reference range: 3.8-10.8 Thousand/uL. The reference range was not used to interpret this result as normal/abnormal. MICROALBUMIN, RANDOM URINE (W/CREATININE)2022-07-18 00:00:00* Test Item Value Reference Range Interpretation Comme nts CREATININE, RANDOM URINE (test code = 2161-8) 83 mg/dL See_Comment N [Automated [employer] [place] ge] The system which generated this result transmitted reference range: 20-275 mg/dL. The reference range was not used to interpret this result as normal/abnormal. ALBUMIN, URINE (test code = 72360-8) 1.4 mg/dL See Note: mg/dL N ALBUMIN/CREATININ E RATIO, RANDOM URINE (test code = 9318-7) 17 mcg/mg creat See_Comment N [Automated [employer] [place] ge] The system which generated this result transmitted reference range: <30 mcg/mg creat. The reference range was not used to interpret this result as normal/abnormal. LIPID [id number] 00:00:00* Test Item Value Reference Range Interpretation Comme nts CHOL/HDLC RATIO (test code = 9830-1) 2.9 (calc) See_Comment N [Automated [employer] [place]] The system which generated this result transmitted reference range: <5.0 (calc). The reference range was not used to interpret this result as normal/abnormal. CHOLESTEROL, TOTAL (test code = 2093-3) 158 mg/dL See_Comment N [Automated message] The system which generated this result transmitted reference range: <200 mg/dL. The reference range was not used to interpret this result as normal/abnormal. HDL CHOLESTEROL (test code = 2085-9) 54 mg/dL See_Comment N [Automated [place] [place] ge] The system which generated this result transmitted reference range: > OR = 50 mg/dL. The reference range was not used to interpret this result as normal/abnormal. LDL-CHOLESTEROL (test code = 98988-6) 83 mg/dL (calc) N NON HDL CHOLESTEROL (test code = 30218-5) 104 mg/dL (calc) See_Comment N [Automated message] The system which generated this result transmitted reference range: <130 mg/dL (calc). The reference range was not used to interpret this result as normal/abnormal. TRIGLYCERIDES (test code = 2571-8) 113 mg/dL See_Comment N [Automated [place] [place] ge] The system which generated this result transmitted reference range: <150 mg/dL. The reference range was not used to interpret this result as normal/abnormal. COMPREHENSIVE METABOLIC PANEL(CMP)2021-10-08 00:00:00* Test Item Value Reference Range Interpretation Comme nts GLUCOSE (test code = 2345-7) 113 mg/dL See_Comment H [Automated message] The system which generated this result transmitted reference range: 65-99 mg/dL. The reference range was not used to interpret this result as normal/abnormal. UREA NITROGEN (BUN) (test code = 3094-0) 17 mg/dL See_Comment N [Automated message] The system which generated this result transmitted reference range: 7-25 mg/dL. The reference range was not used to interpret this result as normal/abnormal. CREATININE (test code = 2160-0) 0.95 mg/dL See_Comment N [Automated message] The system which generated this result transmitted reference range: 0.50-1.03 mg/dL. The reference range was not used to interpret this result as normal/abnormal. BUN/CREATININE RATIO (test code = 3097-3) NOT APPLICABLE (calc) See_Comment [Automated message] The system which generated this result transmitted reference range: 6-22 (calc). The reference range was not used to interpret this result as normal/abnormal. SODIUM (test code = 2951-2) 137 mmol/L See_Comment N [Automated message] The system which generated this result transmitted reference range: 135-146 mmol/L. The reference range was not used to interpret this result as normal/abnormal. POTASSIUM (test code = 2823-3) 4.5 mmol/L See_Comment N [Automated message] The system which generated this result transmitted reference range: 3.5-5.3 mmol/L. The reference range was not used to interpret this result as normal/abnormal. CHLORIDE (test code = 2075-0) 101 mmol/L See_Comment N [Automated message] The system which generated this result transmitted reference range: 98-110 mmol/L. The reference range was not used to interpret this result as normal/abnormal. CARBON DIOXIDE (test code = 2027-9) 30 mmol/L See_Comment N [Automated message] The system which generated this result transmitted reference range: 20-32 mmol/L. The reference range was not used to interpret this result as normal/abnormal. CALCIUM (test code = 90233-0) 8.9 mg/dL See_Comment N [Automated message] The system which generated this result transmitted reference range: 8.6-10.4 mg/dL. The reference range was not used to interpret this result as normal/abnormal. PROTEIN, TOTAL (test code = 2885-2) 7.3 g/dL See_Comment N [Automated message] The system which generated this result transmitted reference range: 6.1-8.1 g/dL. The reference range was not used to interpret this result as normal/abnormal. ALBUMIN (test code = 1751-7) 3.7 g/dL See_Comment N [Automated message] The system which generated this result transmitted reference range: 3.6-5.1 g/dL. The reference range was not used to interpret this result as normal/abnormal. GLOBULIN (test code = 63903-2) 3.6 g/dL (calc) See_Comment N [Automated message] The system which generated this result transmitted reference range: 1.9-3.7 g/dL (calc). The reference range was not used to interpret this result as normal/abnormal. ALBUMIN/GLOBULIN RATIO (test code = 1759-0) 1.0 (calc) See_Comment N [Automated message] The system which generated this result transmitted reference range: 1.0-2.5 (calc). The reference range was not used to interpret this result as normal/abnormal. BILIRUBIN, TOTAL (test code = 1975-2) 0.4 mg/dL See_Comment N [Automated message] The system which generated this result transmitted reference range: 0.2-1.2 mg/dL. The reference range was not used to interpret this result as normal/abnormal. ALKALINE PHOSPHATASE (test code = 6768-6) 60 U/L See_Comment N [Automated message] The system which generated this result transmitted reference range: 37-153 U/L. The reference range was not used to interpret this result as normal/abnormal. AST (test code = 1920-8) 16 U/L See_Comment N [Automated message] The system which generated this result transmitted reference range: 10-35 U/L. The reference range was not used to interpret this result as normal/abnormal. ALT (test code = 1742-6) 13 U/L See_Comment N [Automated message] The system which generated this result transmitted reference range: 6-29 U/L. The reference range was not used to interpret this result as normal/abnormal. HEMOGLOBIN A1c W/REFL TO GLYCOMARK(R)2021-10-08 00:00:00* Test Item Value Reference Range Interpretation Comme nts HEMOGLOBIN A1c (test code = 4549-2) 6.1 % of total Hgb See_Comment H [Automated message] The system which generated this result transmitted reference range: <5.7 % of total Hgb. The reference range was not used to interpret this result as normal/abnormal. CBC (INCLUDES DIFF/PLT)2021-10-08 00:00:00* Test Item Value Reference Range Interpretation Comme nts WHITE BLOOD CELL COUNT (test code = 6690-2) 3.5 Thousand/uL See_Comment L [Automated message] The system which generated this result transmitted reference range: 3.8-10.8 Thousand/uL. The reference range was not used to interpret this result as normal/abnormal. RED BLOOD CELL COUNT (test code = 789-8) 4.12 Million/uL See_Comment N [Automated message] The system which generated this result transmitted reference range: 3.80-5.10 Million/uL. The reference range was not used to interpret this result as normal/abnormal. HEMOGLOBIN (test code = 718-7) 12.2 g/dL See_Comment N [Automated messa ge] The system which generated this result transmitted reference range: 11.7-15.5 g/dL. The reference range was not used to interpret this result as normal/abnormal. HEMATOCRIT (test code = 4544-3) 36.5 % See_Comment N [Automated messa ge] The system which generated this result transmitted reference range: 35.0-45.0 %. The reference range was not used to interpret this result as normal/abnormal. MCV (test code = 787-2) 88.6 fL See_Comment N [Automated messa ge] The system which generated this result transmitted reference range: 80.0-100.0 fL. The reference range was not used to interpret this result as normal/abnormal. MCH (test code = 785-6) 29.6 pg See_Comment N [Automated messa ge] The system which generated this result transmitted reference range: 27.0-33.0 pg. The reference range was not used to interpret this result as normal/abnormal. MCHC (test code = 786-4) 33.4 g/dL See_Comment N [Automated messa ge] The system which generated this result transmitted reference range: 32.0-36.0 g/dL. The reference range was not used to interpret this result as normal/abnormal. RDW (test code = 788-0) 12.6 % See_Comment N [Automated messa ge] The system which generated this result transmitted reference range: 11.0-15.0 %. The reference range was not used to interpret this result as normal/abnormal. PLATELET COUNT (test code = 777-3) 319 Thousand/uL See_Comment N [Automated message] The system which generated this result transmitted reference range: 140-400 Thousand/uL. The reference range was not used to interpret this result as normal/abnormal. MPV (test code = 776-5) 11.1 fL See_Comment N [Automated messa ge] The system which generated this result transmitted reference range: 7.5-12.5 fL. The reference range was not used to interpret this result as normal/abnormal. ABSOLUTE NEUTROPHILS (test code = 751-8) 1358 cells/uL See_Comment L [Automated m essage] The system which generated this result transmitted reference range: 8099-0363 cells/uL. The reference range was not used to interpret this result as normal/abnormal. ABSOLUTE LYMPHOCYTES (test code = 731-0) 1726 cells/uL See_Comment N [Automated m essage] The system which generated this result transmitted reference range: 850-3900 cells/uL. The reference range was not used to interpret this result as normal/abnormal. ABSOLUTE MONOCYTES (test code = 742-7) 326 cells/uL See_Comment N [Automated m essage] The system which generated this result transmitted reference range: 200-950 cells/uL. The reference range was not used to interpret this result as normal/abnormal. ABSOLUTE EOSINOPHILS (test code = 711-2) 81 cells/uL See_Comment N [Automated m essage] The system which generated this result transmitted reference range: 15-500 cells/uL. The reference range was not used to interpret this result as normal/abnormal. ABSOLUTE BASOPHILS (test code = 704-7) 11 cells/uL See_Comment N [Automated m essage] The system which generated this result transmitted reference range: 0-200 cells/uL. The reference range was not used to interpret this result as normal/abnormal. NEUTROPHILS (test code = 770-8) 38.8 % N LYMPHOCYTES (test code = 736-9) 49.3 % N MONOCYTES (test code = 5905-5) 9.3 % N EOSINOPHILS (test code = 713-8) 2.3 % N BASOPHILS (test code = 706-2) 0.3 % N MICROALBUMIN, RANDOM URINE (W/CREATININE)2021-10-08 00:00:00* Test Item Value Reference Range Interpretation Comme nts CREATININE, RANDOM URINE (test code = 2161-8) 129 mg/dL See_Comment N [Automated K[employer] Kenta ge] The system which generated this result transmitted reference range: 20-275 mg/dL. The reference range was not used to interpret this result as normal/abnormal. ALBUMIN, URINE (test code = 05329-1) 0.2 mg/dL See Note: mg/dL N ALBUMIN/CREATININ E RATIO, RANDOM URINE (test code = 9318-7) 2 mcg/mg creat See_Comment N [Automated [employer] ge] The system which generated this result transmitted reference range: <30 mcg/mg creat. The reference range was not used to interpret this result as normal/abnormal. LIPID [id number] 00:00:00* Test Item Value Reference Range Interpretation Comme nts CHOLESTEROL, TOTAL (test code = 2093-3) 145 mg/dL See_Comment N [Automated message] The system which generated this result transmitted reference range: <200 mg/dL. The reference range was not used to interpret this result as normal/abnormal. HDL CHOLESTEROL (test code = 2085-9) 50 mg/dL See_Comment N [Automated [employer] ge] The system which generated this result transmitted reference range: > OR = 50 mg/dL. The reference range was not used to interpret this result as normal/abnormal. TRIGLYCERIDES (test code = 2571-8) 84 mg/dL See_Comment N [Automated messa ge] The system which generated this result transmitted reference range: <150 mg/dL. The reference range was not used to interpret this result as normal/abnormal. LDL-CHOLESTEROL (test code = 87971-5) 79 mg/dL (calc) N CHOL/HDLC RATIO (test code = 9830-1) 2.9 (calc) See_Comment N [Automated messa [place]] The system which generated this result transmitted reference range: <5.0 (calc). The reference range was not used to interpret this result as normal/abnormal. NON HDL CHOLESTEROL (test code = 77347-1) 95 mg/dL (calc) See_Comment N [Automated message] The system which generated this result transmitted reference range: <130 mg/dL (calc). The reference range was not used to interpret this result as normal/abnormal. TROPONIN [id number] 22:28:08* Test Item Value Reference Range Interpretation Comments TROPONIN I (test code = 0854241424) 0.004 ng/mL See_Comment [Automated message] The system which generated this result transmitted reference range: <=0.034. The reference range was not used to interpret this result as normal/abnormal. ELZA (test code = ELZA) Reference (Normal) Range (defined by the 99th percentile reference limit): <= 0.034 ng/mL Note: Cardiac troponin begins to rise 3-4 hours after the onset of ischemia. Repeat in 4-6 hours if the sample was drawn within 3-4 hours of the onset of the symptom and found normal. Diagnosis of myocardial injury is made with acute changes in cTn concentrations with at least one serial sample above the 99th percentile upper reference limit (URL), taken together with the patient's clinical presentation. Biotin has been reported to cause a negative bias, interpret results relative to patient's use of biotin. Lab Interpretation (test code = 32890-4) Normal [facility]. METABOLIC PANEL (80331)2021-03-07 22:21:06* Test Item Value Reference Range Interpretation Comme nts NA (test code = 9619705805) 135 mmol/L 135-145 K (test code = 3650013998) 4.1 mmol/L 3.5-5.0 CL (test code = 1527749043) 103 mmol/L 98-108 CO2 TOTAL (test code = 8136590508) 26 mmol/L 23-31 AGAP (test code = 4911210389) 2-16 BUN (test code = 4367721558) 20 mg/dL 7-23 GLUCOSE (test code = 5589053067) 114 mg/dL 70-110 H CREATININE (test code = 0001468304) 0.89 mg/dL 0.50-1.04 TOTAL BILI (test code = 3109498043) 0.3 mg/dL 0.1-1.1 CALCIUM (test code = 7625246480) 8.6 mg/dL 8.6-10.6 T PROTEIN (test code = 0062823127) 7.1 g/dL 6.3-8.2 ALBUMIN (test code = 4531620388) 3.7 g/dL 3.5-5.0 ALK PHOS (test code = 1466603451) 71 U/L 34-122 ALTv (test code = 1742-6) 14 U/L 5-35 AST(SGOT) (test code = 9398418877) 20 U/L 13-40 eGFR (test code = 1161559673) mL/min/1.73m2 ELZA (test code = ELZA) Association of Glomerular Filtration Rate (GFR) and Staging of Kidney Disease* + --+ --+ ------+| GFR (mL/min/1.73 m2) ?| With Kidney Damage ?| ?Without Kidney Damage+ --------+ --------+ +| ?>90 ?| ?Stage one ?| ? Normal ?+ ---+ ---+ -------+| ?60-89 ?| ?Stage two ?| ? Decreased GFR ? + --+ --+ ------+| ?30-59 ?| ?Stage three ?| ? Stage three ? + --+ --+ ------+| ?15-29 ?| ?Stage four ? | ? Stage four ?+ ---+ ---+ -------+| ?<15 (or dialysis) ? ?| ?Stage five ? | ? Stage five ?+ ---+ ---+ -------+ *Each stage assumes the associated GFR level has been in effect for at least three months. ?Stages 1 to 5, with or without kidney disease, indicate chronic kidney disease. Notes: Determination of stages one and two (with eGFR >59mL/min/1.73 m2) requires estimation of kidney damage for at least three months as defined by structural or functional abnormalities of the kidney, manifested by either:Pathological abnormalities or Markers of kidney damage (including abnormalities in the composition of the blood or urine or abnormalities in imaging tests). Lab Interpretation (test code = 90464-7) Abnormal [facility] WITH [id number] 22:07:08* Test Item Value Reference Range Interpretation Comme nts WBC (test code = 6690-2) See_Comment [Automated [employer] ge] The system which generated this result transmitted reference range: 4.30 - 11.10 10*3/?L. The reference range was not used to interpret this result as normal/abnormal. RBC (test code = 789-8) See_Comment [Automated [employer] ge] The system which generated this result transmitted reference range: 3.93 - 5.25 10*6/?L. The reference range was not used to interpret this result as normal/abnormal. HGB (test code = 718-7) 12.1 g/dL 11.6-15.0 HCT (test code = 4544-3) 35.7 % 35.7-45.2 MCV (test code = 787-2) 89.0 fL 80.6-95.5 MCH (test code = 785-6) 30.2 pg 25.9-32.8 MCHC (test code = 786-4) 33.9 g/dL 31.6-35.1 RDW-SD (test code = 32115-3) 45.0 fL 39.0-49.9 RDW-CV (test code = 788-0) 13.7 % 12.0-15.5 PLT (test code = 777-3) See_Comment [Automated [employer] ge] The system which generated this result transmitted reference range: 166 - 358 10*3/?L. The reference range was not used to interpret this result as normal/abnormal. MPV (test code = 94005-5) 10.9 fL 9.5-12.9 NRBC/100 WBC (test code = 2977326829) See_Comment [Automated [employer] ssage] The system which generated this result transmitted reference range: 0.0 - 10.0 /100 WBCs. The reference range was not used to interpret this result as normal/abnormal. NRBC x10^3 (test code = 2185397874) <0.01 See_Comment [Automated me ssage] The system which generated this result transmitted reference range: 10*3/?L. The reference range was not used to interpret this result as normal/abnormal. GRAN MAT (NEUT) % (test code = 770-8) 65.5 % IMM GRAN % (test code = 0814749735) 0.30 % LYMPH % (test code = 736-9) 27.5 % MONO % (test code = 5905-5) 5.9 % EOS % (test code = 713-8) 0.4 % BASO % (test code = 706-2) 0.4 % GRAN MAT x10^3(ANC) (test code = 4127937630) 5.03 10*3/uL 1.88-7.09 IMM GRAN x10^3 (test code = 5387322777) <0.03 0.00-0.06 LYMPH x10^3 (test code = 731-0) 2.11 10*3/uL 1.32-3.29 MONO x10^3 (test code = 742-7) 0.45 10*3/uL 0.33-0.92 EOS x10^3 (test code = 711-2) 0.03 10*3/uL 0.03-0.39 BASO x10^3 (test code = 704-7) 0.03 10*3/uL 0.01-0.07 [facility] 23:18:00* Test Item Value Reference Range Interpretation Comme nts POCT GLU (test code = 5607612641) 87 mg/dL 70-110 Lab Interpretation (test cod e = 61715-6) Normal [facility] 22:58:00* Test Item Value Reference Range Interpretation Comme nts APPEARANCE (test code = 7019667572) Clear Clear COLOR (test code = 6589501658) Straw Yellow A PH (test code = 4572608790) 4.8-8.0 SP GRAVITY (test code = 3167925004) 1.003-1.030 GLU U QUAL (test code = 4046232595) Normal Normal BLOOD (test code = 7820319882) Negative Negative KETONES (test code = 6081913213) Negative Negative PROTEIN (test code = 2887-8) Negative Negative UROBILIN (test code = 5332858533) Normal Normal BILIRUBIN (test code = 6942594160) Negative Negative NITRITE (test code = 7090651665) Negative Negative LEUK OLENA (test code = 0365902653) Negative Negative RBC/HPF (test code = 7403327842) See_Comment [Automated messa ge] The system which generated this result transmitted reference range: 0 - 3 HPF. The reference range was not used to interpret this result as normal/abnormal. WBC/HPF (test code = 6884101070) <1 See_Comment [Automated messa ge] The system which generated this result transmitted reference range: 0 - 5 HPF. The reference range was not used to interpret this result as normal/abnormal. BACTERIA (test code = 7239769268) Few Negative A SQ EPITH (test code = 9884289066) HPF TRANS EPI (test code = 1798182954) <1 See_Comment [Automated messa ge] The system which generated this result transmitted reference range: <=1 HPF. The reference range was not used to interpret this result as normal/abnormal. Lab Interpretation (test code = 76684-8) Abnormal [facility]"
[2023-06-20 10:57] LABS: Absolute Lymphocytes (CBC) 1.6 K/uL (0.7-4.9); Absolute Monocytes 0.3 K/uL (0.1-1.3); Absolute Neutrophil 2.5 K/uL (1.8-8.0); Basophils % 0.5 % (0-1.3); Eosinophils % 0.8 % (0-4.4); Hematocrit 38.2 % (36.0-45.0); Hemoglobin 12.8 g/dL (12.0-15.0); Lymphocytes % 35.2 % (15.3-44.8); MCH 31.6 pg (27.0-35.0); MCHC 33.6 g/dL (32.0-36.0); MCV 94.3 fL (80-100); MPV 8.8 fL (7.6-11.3); Monocytes % 6.6 % (3.3-12.3); Neutrophils % 56.9 % (41.7-73.7); Nucleated Red Blood Cells % 0.1 % (0-0); Platelets 269 thou/uL (152-406); RBC Red Blood Cell Count 4.06 M/uL (3.86-4.86); Red Cell Distribution Width 14.2 % (12.1-15.2)
[2023-06-20 11:13] LABS: Albumin 3.1 g/dL (3.4-5.0); Albumin/Globulin Ratio 0.7 (1.1-1.8); Bilirubin Total 0.4 mg/dL (0.2-1.0); Globulin 4.4 g/dL (2.3-3.5); Protein, Total 7.5 g/dL (6.4-8.2)
[2023-06-20] MEDS ORDERED: ONDANSETRON 4 MG/2 ML VIAL ONE (11:37)
[2023-06-20] MEDS ORDERED: KETOROLAC 30 MG/ML INJ ONE (11:37)
[2023-06-20 11:43] LABS: Specific Gravity 1.011 (1.005-1.030); Urine Bacteria None Seen /HPF (<20); Urine Bilirubin NEGATIVE (Negative); Urine Blood Negative (Negative); Urine Clarity Turbid (Clear); Urine Color Light-Yellow (Yellow); Urine Culture Reflex Order NOT NEEDED; Urine Glucose NEGATIVE (Negative); Urine Ketones NEGATIVE (Negative); Urine Microscopic Reflex YN ORDER UMIC; Urine Mucus Slight /HPF (None Seen); Urine Nitrite NEGATIVE (Negative); Urine Protein NEGATIVE (Negative); Urine RBC <5 /HPF (None Seen); Urine Urobilinogen Normal (Normal); Urine WBC <5 /HPF (<5)
--- NOTE | 2023-06-20 11:44 | RAD REPORT ---
EXAM DESCRIPTION: CT - Abdomen Pelvis W Contrast - 06/20/2023 11:24 am CLINICAL HISTORY: Abdominal pain COMPARISON: 2017 TECHNIQUE: Computed axial tomography of the abdomen pelvis was obtained. 100 cc Isovue-300 was admin istered intravenously. Oral contrast was not requested which limits evaluation of bowel and appendix All CT scans are performed using dose optimization technique as appropriate and may include automated exposure control or mA/KV adjustment according to patient size. FINDINGS: Mild fatty liver. Mild hepatomegaly. Spleen, pancreas and adrenals are unremarkable. Absent left kidney. 4.5 millimeter calculus right kidney. Mild fullness of the pelvis and calices unchanged probably are not significant. A normal appendix. No evidence of diverticulitis. Hysterectomy. No adnexal mass Small to moderate umbilical hernia. Slight posterior subluxation L4 on L5. Slight posterior subluxati on L5 on S1 IMPRESSION: Nonobstructing right renal calculus Mild fatty liver with mild hepatomegaly
--- NOTE | 2023-06-20 11:59 | ER ---
Nurse's Notes [facility] Name: Greg Fragoso Age: 53 yrs Sex: Female : 1970 Arrival Date: 06/20/2023 Time: 10:02 Bed 12 [facility] MD: Diagnosis: Kidney Stone Presentation: 06/19 10:12 Chief complaint: Patient states: R flank pain since last night with nausea. Coronavirus ll1 screen: Client denies travel out of the [place] in the last 14 days. At this time, the client does not indicate any symptoms associated with coronavirus-19. Ebola Screen: Patient denies travel to an Ebola-affected area in the 21 days before illness onset. Initial Sepsis Screen: Does the patient meet any 2 criteria? No. Patient's initial sepsis screen is negative. Does the patient have a suspected source of infection? No. Patient's initial sepsis screen is negative. Risk Assessment: Do you want to hurt yourself or someone else? Patient reports no desire to harm self or others. Onset of symptoms was June 19, 2023. 10:12 Method Of Arrival: Ambulatory ll1 10:12 Acuity: JOHNIE 3 ll1 Historical: - Allergies: 10:11 No Known Allergies; ll1 - PMHx: 10:11 Hypertensive disorder; ll1 - PSHx: 10:11 hysterectomy; ll1 - Immunization history:: Adult Immunizations up to date. - Infectious Disease History:: Denies. - Social history:: Smoking status: Patient denies any tobacco usage or history of. Screenin:55 [facility] ED Fall Risk Assessment (Adult) History of falling in the last 3 months, jl7 including since admission No falls in past 3 months (0 pts) Confusion or Disorientation No (0 pts) Intoxicated or Sedated No (0 pts) Impaired Gait No (0 pts) Mobility Assist Device Used No (0 pt) Altered Elimination No (0 pt) Score/Fall Risk Level 0 - 2 = Low Risk Oriented to surroundings, Maintained a safe environment. Abuse screen: Denies threats or abuse. Denies injuries from another. Nutritional screening: No deficits noted. Tuberculosis screening: No symptoms or risk factors identified. Assessment: 11:40 General: Appears in no apparent distress. uncomfortable, Behavior is calm, cooperative, jl7 appropriate for age. Pain: Complains of pain in right lower quadrant Pain currently is 5 out of 10 on a pain scale. Neuro: Level of Consciousness is awake, alert, obeys commands, Oriented to person, place, time, situation. Cardiovascular: Patient's skin is warm and dry. Respiratory: Airway is patent Respiratory effort is even, unlabored, Respiratory pattern is regular, symmetrical. GI: Reports nausea, Patient currently denies diarrhea. : Denies burning with urination. Derm: Skin is pink, warm \T\ dry. Vital Signs: 10:12 BP 143 / 91; Pulse 63; Resp 17; Temp 98.5; Pulse Ox 100% ; Weight 83.46 kg; Height 5 ll1 ft. 4 in. ; Pain 5/10; 11:55 BP 123 / 79; Pulse 65; Resp 15; Pulse Ox 100% ; Pain 5/10; jl7 12:24 BP 113 / 76; Pulse 52; Resp 18 S; Pulse Ox 100% on R/A; as6 10:12 Body Mass Index 31.58 (83.46 kg, 162.56 cm) ll1 10:12 Pain Scale: Adult ll1 11:55 Pain Scale: Adult jl7 ED Course: 10:05 Patient arrived in ED. mg5 10:06 Ehsan Courtney MD is Attending Physician. ec2 10:08 Mara Brown, TONIO is Primary Nurse. ko1 10:11 Arm band placed on. ll1 10:13 Triage completed. ll1 10:42 CBC with Diff Sent. jr12 10:42 CMP Sent. jr12 10:42 Lipase Sent. jr12 10:42 Urinalysis w/ reflexes Sent. jr12 10:42 Inserted saline lock: 20 gauge in left antecubital area, using aseptic technique. Blood jr12 collected. 11:26 CT Abd/Pelvis - IV Contrast Only In Process Unspecified. EDMS 11:34 Jackie Rojo, TONIO is Primary Nurse. jl7 11:55 Patient has correct armband on for positive identification. Bed in low position. Call jl7 light in reach. Side rails up X 1. Provided Education on: use of call torres. Client placed on continuous cardiac and pulse oximetry monitoring. NIBP monitoring applied. Warm blanket given. 11:58 Owen Moeller MD is Referral Physician. ec2 12:11 Primary Nurse role handed off by Jackie Rojo RN jl7 12:24 No provider procedures requiring assistance completed. IV discontinued, intact, as6 bleeding controlled, No redness/swelling at site. Pressure dressing applied. Administered Medications: 11:42 Drug: TORadol - Ketorolac IVP 15 mg IVP once Route: IVP; Site: left antecubital; jl7 12:24 Follow up: Response: No adverse reaction as6 11:42 Drug: Ondansetron IVP 4 mg IVP once; over 2 minutes Route: IVP; Site: left antecubital; jl7 12:23 Follow up: Response: No adverse reaction as6 Medication: 12:25 VIS not applicable for this client. as6 Outcome: 11:58 Discharge ordered by . ec2 12:24 Discharged to home ambulatory, as6 12:24 Condition: stable 12:24 Discharge instructions given to patient, Instructed on discharge instructions, follow up and referral plans. medication usage, Demonstrated understanding of instructions, follow-up care, medications, Prescriptions given X 1, 12:25 Patient left the ED. as6 Signatures: Dispatcher [employer] Jackie Martínez RN RN jl7 Dhiraj Soto RN RN ll1 Ghassan White RN RN as6 Mara Brown RN RN koKaelyn Soares mg5 Ehsan Courtney MD MD ec2 Jackelyn Foster jr12
--- NOTE | 2023-06-20 11:59 | EDPHYS ---
Physician Documentation [facility] Name: Greg Fragoso Age: 53 yrs Sex: Female : 1970 Arrival Date: 06/20/2023 Time: 10:02 Bed 12 Private MD: ED Physician Ehsan Courtney HPI: 06/19 10:29 This 53 yrs old Black Female presents to ER via Ambulatory with complaints of Flank ec2 Pain. 10:29 Patient arrives today for evaluation of right-sided abdominal pain. Patient reports ec2 pain since last night. Patient reported no specific alleviating or exacerbating factors. Reports some associated nausea, no vomiting, no diarrhea. Patient with previous history of hysterectomy, no other abdominal surgeries.. Historical: - Allergies: 10:11 No Known Allergies; ll1 - PMHx: 10:11 Hypertensive disorder; ll1 - PSHx: 10:11 hysterectomy; ll1 - Immunization history:: Adult Immunizations up to date. - Infectious Disease History:: Denies. - Social history:: Smoking status: Patient denies any tobacco usage or history of. ROS: 10:29 Constitutional: as per hpi ec2 Exam: 10:29 Constitutional: GEN: NAD Head: atraumatic Eyes: EOMI Ears: External ears are ec2 normal. CV: regular rate LUNGS: no respiratory distress ABD: non-distended, soft, tender in the right lower quadrant, no guarding, not rigid, right CVA TTP. SKIN: no evidence of rashes MSK: no evidence of trauma NEURO: moves all extremities equally Vital Signs: 10:12 BP 143 / 91; Pulse 63; Resp 17; Temp 98.5; Pulse Ox 100% ; Weight 83.46 kg; Height 5 ll1 ft. 4 in. ; Pain 5/10; 11:55 BP 123 / 79; Pulse 65; Resp 15; Pulse Ox 100% ; Pain 5/10; jl7 12:24 BP 113 / 76; Pulse 52; Resp 18 S; Pulse Ox 100% on R/A; as6 10:12 Body Mass Index 31.58 (83.46 kg, 162.56 cm) ll1 10:12 Pain Scale: Adult ll1 11:55 Pain Scale: Adult jl7 MDM: 10:24 Patient medically screened. ec2 10:29 Data reviewed: vital signs. ED course: Patient arrives today for right-sided abdominal ec2 pain. Examination remarkable for abdominal findings as above. Will obtain lab work, urine studies, CT imaging. Evaluating for cholecystitis, appendicitis, UTI, pyelonephritis. 11:16 ED course: Metabolic profile reassuring, CBC reassuring, lipase within normal ranges. ec2 Pending CT imaging. . 11:55 ED course: Urine noninfectious appearing, CT imaging shows 4.5 mm nonobstructing renal ec2 calculus. Will discharge home have follow-up with urology. . 06/19 10:29 Order name: CBC with Diff; Complete Time: 11:16 ec2 06/19 10:29 Order name: CMP; Complete Time: 11:16 ec2 06/19 10:29 Order name: Lipase; Complete Time: 11:16 ec2 06/19 10:29 Order name: Urinalysis w/ reflexes; Complete Time: 11:54 ec2 06/19 10:29 Order name: CT Abd/Pelvis - IV Contrast Only; Complete Time: 11:54 ec2 06/19 10:29 Order name: IV Saline Lock; Complete Time: 10:42 ec2 06/19 10:29 Order name: Labs collected and sent; Complete Time: 10:42 ec2 Administered Medications: 11:42 Drug: TORadol - Ketorolac IVP 15 mg IVP once Route: IVP; Site: left antecubital; jl7 12:24 Follow up: Response: No adverse reaction as6 11:42 Drug: Ondansetron IVP 4 mg IVP once; over 2 minutes Route: IVP; Site: left antecubital; jl7 12:23 Follow up: Response: No adverse reaction as6 Disposition Summary: 06/20/23 11:58 Discharge Ordered Notes: Location: Home ec2 Condition: Stable ec2 Diagnosis - Kidney Stone ec2 Followup: ec2 - With: Owen Moeller MD - When: - Reason: Recheck today's complaints Discharge Instructions: - Discharge Summary Sheet ec2 - Kidney Stones, [id number] ec2 Forms: - Work release form as6 - Medication Reconciliation Form ec2 - Thank You Letter ec2 - Antibiotic Education ec2 - Prescription Opioid Use ec2 - Patient Portal Instructions ec2 - Leadership Thank You Letter ec2 Prescriptions: - acetaminophen-codeine 300-15 mg Oral tablet - take 1 tablet ORAL route 3 times per day; 15 tablet; Refills: 0, Product ec2 Selection Permitted Signatures: Dispatcher [employer] Jackie Martínez RN RN jl7 Dhiraj Soto RN RN ll1 Ghassan White RN RN as6 Ehsan Courtney MD MD ec2 Corrections: (The following items were deleted from the chart) 10:29 10:29 Abdomen Pelvis W Con+CT.RAD.BRZ ordered. HERNANDEZ NG
[2023-06-20 13:23] VITALS: BP 113/76; TEMP 98.5; O2SAT 100
== END 2023-06-20 12:25 | disposition home or self-care (01) ==
LOC: ER 10:02
DX: N20.0 Calculus of kidney (principal); I10 Essential (primary) hypertension
CPT/HCPCS: 85025; 81001; 36415; 83690; 80053; 74177; 96375; 96374; 99284; Q9967; J2405

== ENCOUNTER 2024-05-16 16:40 | Emergency (ER) | payer BC ==
--- OUTSIDE RECORDS SUMMARY | 2024-05-16 16:45 | XMS REPORT | Continuity of Care Document ---
Author Name Unknown Address [address] [place] [address] [facility] [place] Address 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 Role Phone Aleksandra Boswell Primary Care Physician [phone] Aleksandra Boswell Attending Clinician Unavailable DARRELL LOPEZ Attending Clinician Unavailable DARRELL LOPEZ Attending Clinician Unavailable Darrell Lopez MD Attending Clinician 2, [facility] Attending Clinician Unavailable FILIPE MACHUCA Attending Clinician Unavailable Filipe Machuca MD Attending Clinician [phone] 2, [facility] Attending Clinician Unavailable Rina Daley Attending Clinician RINA CAPONE Attending Clinician Unavailmodesto holcomb [email or web address] Attending Clinician UnavailBRENNA Toscano Attending Clinician UnavailBrenna Ramirez DO Attending Clinician [phone] Catherine Minaya RN Attending Clinician UnavailJose Rice DO Attending Clinician [phone] KANU JIMÉNEZ Attending Clinician Unavailable DARRELL LOPEZ Admitting Clinician Unavailable FILIPE MACHUCA Admitting Clinician Unavailable RINA CAPONE Admitting Clinician Unavaila zhang [email or web address]_S Admitting Clinician Unavaila zhang Payers Payer Name Policy Type Policy Number Effective Date Expirati on Date Source [place] - OUT OF STATE [id number] 0 2020 00:00:00 Blue Cross Blue [employer] of [place] 6 [id number] 2021 00:00:00 [facility] [place] [id number] 0 2021 00:00:00 Blue Cross Blue [facility] of [place] 6 [id number] 2020 00:00:00 [facility] Problems Condition Name Condition Details Condition Category Status Onset Date Resolution Date Last Treatment Date Treating Clinician Comments Source Menopausal symptom Menopausal Symptom Problem Active 07-30 00:00: 00 [facility] Hypertensi ve disorder Hypertensi ve Disorder Problem Active 2022-03 1-16 00:00: 00 [facility] Moderate major depression , single episode Moderate Major Depression , Single Episode Problem Active 8-04 00:00: 00 [facility] Screening mammograph y Screening Mammograph y Problem Active 07-20 00:00: 00 [facility] Constipati on Constipati on Problem Active 07-11 00:00: 00 [facility] Candidiasi s of vagina Candidiasi s of Vagina Problem Active 07-11 00:00: 00 [facility] Left lower quadrant pain Left Lower Quadrant Pain Problem Active 07-11 00:00: 00 [facility] Polymenorr hea Polymenorr hea Problem Active 07-05 00:00: 00 [facility] Gynecologi omayra examinatio n abnormal Gynecologi omayra Examinatio n Abnormal Problem Active 07-05 00:00: 00 [facility] Excessive menstruati on with irregular cycle Excessive Menstruati on with Irregular Cycle Problem Active 07-05 00:00: 00 [facility] Lichenific ation and lichen simplex chronicus Lichenific ation and Lichen Simplex Chronicus Problem Active 06-30 00:00: 00 [facility] Menopause present Menopause Present Problem Active 06-30 00:00: 00 [facility] [id number] Anxiety about dying Problem [facility] [id number] Bipolar 1 disorder Problem [facility] [id number] Routine adult health maintenanc e Problem [facility] [id number] Back strain, initial encounter Problem [facility] [id number] BMI 34.0-34.9, adult Problem [facility] [id number] Environmen mike allergies Problem [facility] [id number] Abnormal TSH Problem [facility] Primary insomnia Primary insomnia Problem [facility] Essential hypertensi on Essential hypertensi on Problem [facility] Type 2 diabetes mellitus without complicati on Type 2 diabetes mellitus without complicati on, without long-term current use of insulin Problem [facility] Reactive depression Reactive depression Problem [facility] [id number] Renal calculi Problem [facility] Anemia Anemia, unspecifie d type Problem [facility] No known active problems No known active problems Disease [facility] Allergies, Adverse Reactions, Alerts Allergy Name Allergy Type Status Severity Reaction(s) Onset Date Inactive Date Treating Clinician Comments Source NO KNOWN ALLERGIE S Drug Class Active [facility] Social History Social Habit Start Date Stop Date Quantity Comments Source History of Tobacco Use [facility] Sex Assigned At [facility] Exposure to SARS-CoV-2 (event) Not sure [facility] Sexual orientation [facility] History of Social function 2023-06-23 00:00:00 2023-06-23 00:00:00 [facility] Smoking Status Start Date Stop Date Source Never smoked tobacco [facility] Medications Ordered Medication Name Filled Medication Name Start Date Stop Date Current Medication? Ordering Clinician Indication Dosage Frequency Signature (SIG) Comments Components Source gadobenate dimeglumine (MULTIHANCE -15 mL) injection 18.32 mL 2023-03 0 22:00: 00 01-02 21:58 :00 No [id number] .2mL/kg 18.32 mL (0.2 mL/kg ?91.6 kg), Intravenou s, ONCE, 1 dose, On Mon01/03/24 at 1700, Routine [facility] Ibuprofen 800 MG Ibuprofen 800 MG 07-12 00:00: 00 No TID Ibuprofen 800 MG potassium citrate 10 mEq (1,080 mg) SR tablet 07-04 00:00: 00 12-31 00:00 :00 No [id number] 1080mg Take 1 tablet by mouth in the morning and 1 tablet in the evening. Take with meals. [facility] hydroCHLORO thiazide 25 mg tablet 06-22 10:47: 02 Yes [facility] tamsulosin 0.4 mg 24 hr capsule 06-22 00:00: 00 12-31 00:00 :00 No [id number] .4mg Take 1 capsule by mouth in the morning. [facility] acetaminoph en-codeine 300-30 mg tablet 09 00:00: 00 Yes 1{tbl} Take 1 tablet by mouth in the morning and 1 tablet at noon and 1 tablet in the evening. [facility] Lisinopril 20 MG Lisinopril 20 MG - 00:00: 00 No 1{table t} QD Lisinopril 20 MG ketorolac (TORADOL) injection 30 mg 2020-03 22:30: 00 03-07 21:55 :00 No 30mg 30 mg, Intramuscu lar, ONCE, 1 dose, On 03/07/21 at 1630, MARI [facility] Lisinopril- hydroCHLORO thiazide 20-25 MG Lisinopril- hydroCHLORO thiazide 20-25 MG 3-04 00:00: 00 No 1{table t} QD Lisinopril -hydroCHLO ROthiazide 20-25 MG multivitami n capsule 2-02 00:00: 00 Yes [id number] 1{capsu le} Take 1 capsule by mouth daily. [facility] calcium-mag nesium-zinc 333-133-8.3 mg Tab 2- 00:00: 00 Yes [id number] Take as directed for daily dose. [facility] multivitami n capsule 2- 00:00: 00 Yes [id number] 1{capsu le} Take 1 capsule by mouth daily. [facility] calcium-mag nesium-zinc 333-133-8.3 mg Tab 2- 00:00: 00 Yes [id number] Take as directed for daily dose. [facility] ondansetron 4 mg disintegrat ing tablet 2- 00:00: 00 12-31 00:00 :00 No [id number] 4mg Take 1 tablet by mouth every 8 (eight) hours as needed for Nausea and Vomiting (N/V). [facility] benzonatate 100 mg capsule 2- 00:00: 00 12-31 00:00 :00 No [id number] 100mg Take 1 capsule by mouth 3 (three) times daily as needed for Cough. [facility] chlorphenir amine 4 mg tablet 2- 00:00: 00 07-04 00:00 :00 No [id number] 4mg Take 1 tablet by mouth every 6 (six) hours as needed for Allergies or Runny nose. [facility] Kenalog (Triamcinol one) Kenalog (Triamcinol one) 08-08 00:00: 00 No 40mg [facility] B12 B12 No B12 [facility] estradiol 0.1 mg/24 hr semiweekly transdermal patch APPLY 1 PATCH TOPICALLY TWICE A WEEK estradiol 0.1 mg/24 hr semiweekly transdermal patch APPLY 1 PATCH TOPICALLY TWICE A WEEK No 1patch( es) Q3.5D estradiol 0.1 mg/24 hr semiweekly transderma l patch APPLY 1 PATCH TOPICALLY TWICE A WEEK [facility] ibuprofen 800 mg tablet TAKE 1 TABLET BY MOUTH EVERY 8 HOURS NEEDED WITH FOOD OR MILK ibuprofen 800 mg tablet TAKE 1 TABLET BY MOUTH EVERY 8 HOURS NEEDED WITH FOOD OR MILK No ibuprofen 800 mg tablet TAKE 1 TABLET BY MOUTH EVERY 8 HOURS NEEDED WITH FOOD OR MILK [facility] iron iron No iron [facility] lisinopril 20 mg-hydrochl orothiazide 25 mg tablet TAKE 1 TABLET BY MOUTH ONCE A DAY IN THE MORNING lisinopril 20 mg-hydrochl orothiazide 25 mg tablet TAKE 1 TABLET BY MOUTH ONCE A DAY IN THE MORNING No lisinopril 20 mg-hydroch lorothiazi de 25 mg tablet TAKE 1 TABLET BY MOUTH ONCE A DAY IN THE MORNING [facility] magnesium magnesium No magnesium [facility] Multi Vitamin Multi Vitamin No Multi Vitamin [facility] Vitamin D3 Vitamin D3 No Vitamin D3 [facility] Vitamin D-3 1000 UNIT Vitamin D-3 1000 UNIT No 1{capsu le} QD Vitamin D-3 1000 UNIT Vitamin E 100 UNIT Vitamin E 100 UNIT No 1{capsu le} QD Vitamin E 100 UNIT OneTouch Delica Plus [id number] - OneTouch Delica Plus [id number] - No OneTouch Delica Plus [id number] - Estradiol 0.05 MG/24HR Estradiol 0.05 MG/24HR No 1{patch _to_ski n} QD Estradiol 0.05 MG/24HR OneTouch Ultra - OneTouch Ultra - No OneTouch Ultra - zinc zinc No zinc [facility] estradiol 0.075 mg/24 hr semiweekly transdermal patch Apply 1 patch twice a week by transdermal route for 90 days. estradiol 0.075 mg/24 hr semiweekly transdermal patch Apply 1 patch twice a week by transdermal route for 90 days. No 1patch( es) Q3.5D estradiol 0.075 mg/24 hr semiweekly transderma l patch Apply 1 patch twice a week by transderma l route for 90 days. [facility] lisinopril 20 mg tablet TAKE 1 TABLET BY MOUTH ONCE DAILY IN THE EVENING FOR 90 DAYS lisinopril 20 mg tablet TAKE 1 TABLET BY MOUTH ONCE DAILY IN THE EVENING FOR 90 DAYS No lisinopril 20 mg tablet TAKE 1 TABLET BY MOUTH ONCE DAILY IN THE EVENING FOR 90 DAYS [facility] Immunizations Ordered Immunization Name Filled Immunization Name Date Status Comments Source Flucelvax - multidose vial Flucelvax - multidose vial 2021-12-13 08:27:00 Completed [facility] Flucelvax - multidose vial Flucelvax - multidose vial 2021-12-13 08:27:00 Completed [facility] Flucelvax - multidose vial Flucelvax - multidose vial 2021-12-13 08:27:00 Completed [facility] Fluzone Fluzone 2018-12-26 20:07:00 Completed [facility] Fluzone Fluzone 2018-12-26 20:07:00 Completed [facility] Fluzone Fluzone 2018-12-26 20:07:00 Completed [facility] Fluzone Fluzone 2018-12-26 20:07:00 [facility] Fluzone Fluzone 2018-12-26 20:07:00 [facility] Kenalog (Triamcinolone) Kenalog (Triamcinolone) 2017-08-08 17:12:00 Completed [facility] Flucelvax - multidose vial Flucelvax - multidose vial Unknown Completed [facility] Fluzone Fluzone Unknown Completed [facility] Flucelvax - multidose vial Flucelvax - multidose vial Unknown Completed [facility] Fluzone Fluzone Unknown Completed [facility] Flucelvax - multidose vial Flucelvax - multidose vial Unknown Completed [facility] Fluzone Fluzone Unknown Completed [facility] Flucelvax (ccIIV4) - MDV - 0.5mL Flucelvax (ccIIV4) - MDV - 0.5mL Unknown Completed [facility] Fluzone Fluzone Unknown Completed [facility] Flucelvax (ccIIV4) - MDV - 0.5mL Flucelvax (ccIIV4) - MDV - 0.5mL Unknown Completed [facility] Fluzone Fluzone Unknown Completed [facility] Flucelvax (ccIIV4) - MDV - 0.5mL Flucelvax (ccIIV4) - MDV - 0.5mL Unknown Completed [facility] Fluzone Fluzone Unknown Completed [facility] Flucelvax (ccIIV4) - MDV - 0.5mL Flucelvax (ccIIV4) - MDV - 0.5mL Unknown Completed [facility] Fluzone Fluzone Unknown Completed [facility] Flucelvax (ccIIV4) - MDV - 0.5mL Flucelvax (ccIIV4) - MDV - 0.5mL Unknown Completed [facility] Shingrix Shingrix Unknown Completed [facility] Fluzone Fluzone Unknown Completed [facility] Flucelvax (ccIIV4) - SDS - 0.5mL Flucelvax (ccIIV4) - SDS - 0.5mL Unknown Completed [facility] Twinrix Twinrix Unknown Completed [facility] Vital Signs Vital Name Observation Time Observation Value Comments S ource height 2024-03-29 08:40:00 65.25 [in_i] Com [facility] weight 2024-03-29 08:40:00 203.6 [lb_av] Co mmon [facility] temperature 2024-03-29 08:40:00 98.6 [degF] Com [facility] bmi 2024-03-29 08:40:00 33.62 kg/m2 Comm on [facility] oximetry 2024-03-29 08:40:00 96 % Commo n [facility] respiratory rate 2024-03-29 08:40:00 15 /min Common [facility] blood pressure systolic 2024-03-29 08:40:00 118 mm[Hg] Common [facility] blood pressure diastolic 2024-03-29 08:40:00 70 mm[Hg] [facility] BP Systolic 2024-01-31 00:00:00 126 mm[Hg] [facility] Body Weight 2024-01-31 00:00:00 204.3 [lb_av] [facility] BMI (Body Mass Index) 2024-01-31 00:00:00 35.1 kg/m2 [facility] BP Diastolic 2024-01-31 00:00:00 80 mm[Hg] [facility] Height 2024-01-31 00:00:00 64 [in_i] [facility] Systolic blood pressure 2024-01-29 14:09:00 106 mm[Hg] [facility] Diastolic blood pressure 2024-01-29 14:09:00 73 mm[Hg] [facility] Heart rate 2024-01-29 14:09:00 57 /min Unive [facility] Body height 2024-01-29 14:09:00 154.9 cm [facility] Body weight 2024-01-29 14:09:00 92.534 kg [facility] BMI 2024-01-29 14:09:00 38.55 kg/m2 [facility] Oxygen saturation in Arterial blood by Pulse oximetry 2024-01-29 14:09:00 98 /min [facility] Systolic blood pressure 2024-01-01 13:22:00 130 mm[Hg] [place] [facility] Diastolic blood pressure 2024-01-01 13:22:00 78 mm[Hg] [facility] Heart rate 2024-01-01 13:22:00 65 /min Unive [facility] Body height 2024-01-01 13:22:00 162.6 cm [facility] Body weight 2024-01-01 13:22:00 91.627 kg [facility] BMI 2024-01-01 13:22:00 34.67 kg/m2 [facility] Oxygen saturation in Arterial blood by Pulse oximetry 2024-01-01 13:22:00 100 /min [facility] height 2023-11-27 08:00:00 65.25 [in_i] Com [facility] weight 2023-11-27 08:00:00 200.0 [lb_av] Co [facility] temperature 2023-11-27 08:00:00 97.3 [degF] Com [facility] bmi 2023-11-27 08:00:00 33.02 kg/m2 Comm on [facility] oximetry 2023-11-27 08:00:00 100 % Commo n [facility] respiratory rate 2023-11-27 08:00:00 15 /min [facility] blood pressure systolic 2023-11-27 08:00:00 118 mm[Hg] [facility] blood pressure diastolic 2023-11-27 08:00:00 69 mm[Hg] [facility] height 2023-11-27 08:00:00 65.25 [in_i] Com [facility] weight 2023-11-27 08:00:00 200.0 [lb_av] Co [facility] temperature 2023-11-27 08:00:00 97.3 [degF] Com [facility] bmi 2023-11-27 08:00:00 33.02 kg/m2 Comm on [facility] oximetry 2023-11-27 08:00:00 100 % Commo n [facility] respiratory rate 2023-11-27 08:00:00 15 /min [facility] blood pressure systolic 2023-11-27 08:00:00 118 mm[Hg] [facility] blood pressure diastolic 2023-11-27 08:00:00 69 mm[Hg] [facility] Systolic blood pressure 2023-10-31 15:08:00 128 mm[Hg] [facility] Diastolic blood pressure 2023-10-31 15:08:00 74 mm[Hg] [facility] Heart rate 2023-10-31 15:08:00 58 /min Unive [facility] Body height 2023-10-31 15:08:00 162.6 cm [facility] Body weight 2023-10-31 15:08:00 87.091 kg [facility] BMI 2023-10-31 15:08:00 32.96 kg/m2 [facility] Oxygen saturation in Arterial blood by Pulse oximetry 2023-10-31 15:08:00 99 /min [facility] Systolic blood pressure 2023-08-02 18:38:00 107 mm[Hg] [facility] Diastolic blood pressure 2023-08-02 18:38:00 61 mm[Hg] [facility] Heart rate 2023-08-02 18:38:00 57 /min [facility] Respiratory rate 2023-08-02 18:38:00 18 /min [facility] Body height 2023-08-02 18:38:00 162.6 cm [facility] Body weight 2023-08-02 18:38:00 84.369 kg [facility] BMI 2023-08-02 18:38:00 31.93 kg/m2 [facility] Oxygen saturation in Arterial blood by Pulse oximetry 2023-08-02 18:38:00 99 /min [facility] Height 2023-07-31 00:00:00 64 [in_i] [facility] BP Diastolic 2023-07-31 00:00:00 64 mm[Hg] [facility] Body Weight 2023-07-31 00:00:00 186.2 [lb_av] [facility] BP Systolic 2023-07-31 00:00:00 104 mm[Hg] [facility] BMI (Body Mass Index) 2023-07-31 00:00:00 32 kg/m2 [facility] height 2023-07-13 10:00:00 65.25 [in_i] Com [facility] weight 2023-07-13 10:00:00 187.4 [lb_av] Co mmon [facility] temperature 2023-07-13 10:00:00 97.6 [degF] Com [facility] bmi 2023-07-13 10:00:00 30.94 kg/m2 Comm on [facility] oximetry 2023-07-13 10:00:00 97 % Commo n [facility] respiratory rate 2023-07-13 10:00:00 16 /min [facility] blood pressure systolic 2023-07-13 10:00:00 118 mm[Hg] [facility] blood pressure diastolic 2023-07-13 10:00:00 64 mm[Hg] [facility] Systolic blood pressure 2023-06-23 15:48:00 118 mm[Hg] [facility] Diastolic blood pressure 2023-06-23 15:48:00 73 mm[Hg] [facility] Heart rate 2023-06-23 15:48:00 61 /min [facility] 2023-06-23 15:48:00 36.78 Aaliyah [facility] Respiratory rate 2023-06-23 15:48:00 16 /min [facility] Body height 2023-06-23 15:48:00 162.6 cm [facility] Body weight 2023-06-23 15:48:00 85.276 kg [facility] BMI 2023-06-23 15:48:00 32.27 kg/m2 [facility] Oxygen saturation in Arterial blood by Pulse oximetry 2023-06-23 15:48:00 100 /min [facility] height 2023-03-14 08:20:00 65.25 [in_i] Com [facility] weight 2023-03-14 08:20:00 181.0 [lb_av] Co [facility] temperature 2023-03-14 08:20:00 97.5 [degF] Com [facility] bmi 2023-03-14 08:20:00 29.89 kg/m2 Comm on [facility] oximetry 2023-03-14 08:20:00 99 % Commo n [facility] respiratory rate 2023-03-14 08:20:00 16 /min [facility] blood pressure systolic 2023-03-14 08:20:00 122 mm[Hg] Common [facility] blood pressure diastolic 2023-03-14 08:20:00 64 mm[Hg] [facility] height 2022-11-11 08:40:00 65.25 [in_i] Com [facility] weight 2022-11-11 08:40:00 187.8 [lb_av] Co [facility] temperature 2022-11-11 08:40:00 97.2 [degF] Com [facility] bmi 2022-11-11 08:40:00 31.01 kg/m2 Comm on [facility] oximetry 2022-11-11 08:40:00 98 % Commo n [facility] respiratory rate 2022-11-11 08:40:00 15 /min Common [facility] blood pressure systolic 2022-11-11 08:40:00 105 mm[Hg] Common [facility] blood pressure diastolic 2022-11-11 08:40:00 61 mm[Hg] Common [facility] height 2022-07-14 16:00:00 65.25 [in_i] Com [facility] weight 2022-07-14 16:00:00 209.8 [lb_av] Co mmon [facility] temperature 2022-07-14 16:00:00 97.3 [degF] Com [facility] bmi 2022-07-14 16:00:00 34.64 kg/m2 Comm on [facility] oximetry 2022-07-14 16:00:00 100 % Commo n [facility] respiratory rate 2022-07-14 16:00:00 15 /min Common [facility] blood pressure systolic 2022-07-14 16:00:00 107 mm[Hg] [facility] blood pressure diastolic 2022-07-14 16:00:00 63 mm[Hg] [facility] height 2022-04-19 08:00:00 65.25 [in_i] Com [facility] weight 2022-04-19 08:00:00 218.6 [lb_av] Co [facility] temperature 2022-04-19 08:00:00 97.3 [degF] Com [facility] bmi 2022-04-19 08:00:00 36.09 kg/m2 Comm on [facility] oximetry 2022-04-19 08:00:00 98 % Commo n [facility] respiratory rate 2022-04-19 08:00:00 15 /min [facility] blood pressure systolic 2022-04-19 08:00:00 119 mm[Hg] [facility] blood pressure diastolic 2022-04-19 08:00:00 61 mm[Hg] [facility] height 2022-01-17 08:00:00 65.25 [in_i] Com [facility] weight 2022-01-17 08:00:00 216.2 [lb_av] Co [facility] temperature 2022-01-17 08:00:00 97.3 [degF] Com [facility] bmi 2022-01-17 08:00:00 35.7 kg/m2 Commo n [facility] oximetry 2022-01-17 08:00:00 100 % Commo n [facility] respiratory rate 2022-01-17 08:00:00 17 /min [facility] blood pressure systolic 2022-01-17 08:00:00 108 mm[Hg] [facility] blood pressure diastolic 2022-01-17 08:00:00 68 mm[Hg] [facility] height 2021-10-15 09:00:00 65.25 [in_i] Com [facility] weight 2021-10-15 09:00:00 209.6 [lb_av] Co [facility] temperature 2021-10-15 09:00:00 97.8 [degF] Com [facility] bmi 2021-10-15 09:00:00 34.61 kg/m2 Comm on [facility] oximetry 2021-10-15 09:00:00 98 % Commo n [facility] respiratory rate 2021-10-15 09:00:00 16 /min [facility] blood pressure systolic 2021-10-15 09:00:00 109 mm[Hg] [facility] blood pressure diastolic 2021-10-15 09:00:00 63 mm[Hg] [facility] height 2021-09-15 08:20:00 65.25 [in_i] Com [facility] weight 2021-09-15 08:20:00 206.2 [lb_av] Co [facility] temperature 2021-09-15 08:20:00 97.3 [degF] Com [facility] bmi 2021-09-15 08:20:00 34.05 kg/m2 Comm on [facility] oximetry 2021-09-15 08:20:00 99 % Commo n [facility] respiratory rate 2021-09-15 08:20:00 16 /min Common [facility] blood pressure systolic 2021-09-15 08:20:00 115 mm[Hg] Common [facility] blood pressure diastolic 2021-09-15 08:20:00 62 mm[Hg] [facility] height 2021-09-02 08:40:00 65.25 [in_i] Com [facility] weight 2021-09-02 08:40:00 207.8 [lb_av] Co mmon [facility] temperature 2021-09-02 08:40:00 97.3 [degF] Com [facility] bmi 2021-09-02 08:40:00 34.31 kg/m2 Comm on [facility] oximetry 2021-09-02 08:40:00 96 % Commo n [facility] respiratory rate 2021-09-02 08:40:00 16 /min [facility] blood pressure systolic 2021-09-02 08:40:00 110 mm[Hg] [facility] blood pressure diastolic 2021-09-02 08:40:00 62 mm[Hg] Common [facility] height 2021-06-14 10:00:00 65.25 [in_i] Com [facility] weight 2021-06-14 10:00:00 208 [lb_av] Comm on [facility] temperature 2021-06-14 10:00:00 97.2 [degF] Com [facility] bmi 2021-06-14 10:00:00 34.34 kg/m2 Comm on [facility] oximetry 2021-06-14 10:00:00 97 % Commo n [facility] respiratory rate 2021-06-14 10:00:00 16 /min Common [facility] blood pressure systolic 2021-06-14 10:00:00 117 mm[Hg] Common [facility] blood pressure diastolic 2021-06-14 10:00:00 66 mm[Hg] [facility] height 2021-05-11 08:00:00 65.25 [in_i] Com [facility] weight 2021-05-11 08:00:00 206 [lb_av] Comm on [facility] temperature 2021-05-11 08:00:00 97.5 [degF] Com [facility] bmi 2021-05-11 08:00:00 34.01 kg/m2 Comm on [facility] oximetry 2021-05-11 08:00:00 99 % Commo n [facility] respiratory rate 2021-05-11 08:00:00 16 /min [facility] blood pressure systolic 2021-05-11 08:00:00 119 mm[Hg] [facility] blood pressure diastolic 2021-05-11 08:00:00 69 mm[Hg] [facility] Systolic blood pressure 2021-03-07 20:10:00 124 mm[Hg] [facility] Diastolic blood pressure 2021-03-07 20:10:00 87 mm[Hg] [facility] Heart rate 2021-03-07 20:10:00 80 /min [facility] Body temperature 2021-03-07 20:10:00 36.67 Aaliyah [facility] Respiratory rate 2021-03-07 20:10:00 18 /min [facility] Body weight 2021-03-07 20:10:00 96.389 kg [facility] BMI 2021-03-07 20:10:00 36.48 kg/m2 [facility] Oxygen saturation in Arterial blood by Pulse oximetry 2021-03-07 20:10:00 99 /min [facility] height 2021-02-16 11:40:00 65.25 [in_i] Com mon [facility] weight 2021-02-16 11:40:00 205 [lb_av] Comm on [facility] bmi 2021-02-16 11:40:00 33.85 kg/m2 Comm on [facility] height 2020-11-10 13:20:00 65.25 [in_i] Com mon [facility] weight 2020-11-10 13:20:00 213 [lb_av] Comm on [facility] temperature 2020-11-10 13:20:00 98.2 [degF] Com mon [facility] bmi 2020-11-10 13:20:00 35.17 kg/m2 Comm on [facility] oximetry 2020-11-10 13:20:00 98 % Commo n [facility] respiratory rate 2020-11-10 13:20:00 16 /min [facility] blood pressure systolic 2020-11-10 13:20:00 102 mm[Hg] [facility] blood pressure diastolic 2020-11-10 13:20:00 55 mm[Hg] [facility] Systolic blood pressure 2020-04-14 21:38:00 145 mm[Hg] [facility] Diastolic blood pressure 2020-04-14 21:38:00 94 mm[Hg] [facility] Heart rate 2020-04-14 21:38:00 87 /min [facility] 2020-04-14 21:38:00 36.94 Aaliyah [facility] Respiratory rate 2020-04-14 21:38:00 18 /min [facility] Body height 2020-04-14 21:38:00 162.6 cm [facility] Body weight 2020-04-14 21:38:00 97.977 kg [facility] BMI 2020-04-14 21:38:00 37.08 kg/m2 [facility] Oxygen saturation in Arterial blood by Pulse oximetry 2020-04-14 21:38:00 98 /min [facility] Procedures Procedure Date / Time Performed Performing Clinician Source CT ABDOMEN PELVIS WO CONTRAST 2023-11-17 13:03:02 Brigette [facility] ANALIA,POST-VOID RES,US,NON-IMAGING 2023-10-31 15:19:00 [facility] 2023-10-31 15:18:00 Magda Machuca [facility] POCT URINALYSIS AUTO 2023-08-02 18:56:00 Kiera Capone [facility] MAMMO, screening, digital, bilateral 2023-07-31 00:00:00 [facility] US RETROPERITONEAL COMPLETE 2023-06-30 16:32:46 Rina Capone [facility] POCT URINALYSIS AUTO 2023-06-23 15:58:00 Kiera Capone [facility] TROPONIN I 2021-03-07 21:55:00 Brenna Darling [facility] COMP. METABOLIC PANEL ([id number]) 2021-03-07 21:55:00 Brenna Darling [facility] CBC WITH DIFF 2021-03-07 21:55:00 Brenna Darling [facility] acute hospital ASSIGNMENT OF BENEFITS 2021-03-07 21:06:05 Docto r Unassigned, [place] [facility] CONSENT/REFUSAL FOR DIAGNOSIS AND TREATMENT 2021-03-07 20:01:19 Doctor Unassigned, [place] [facility] URINALYSIS 2020-04-14 22:08:00 Jose Cornelius [facility] POCT GLUCOSE (AUTOMATED) 2020-04-14 21:34:00 Pan Cornelius [facility] NOTICE OF PRIVACY PRACTICES 2020-04-14 21:27:55 Doctor Unassigned, [place] [facility] Left Salpingo-oophorectomy 2011-03-13 00:00:00 [facility] Hysterectomy - Vaginal Privi a Medical Encounters Start Date/Time End Date/Time Encounter Type Admission Type Attending Clinicians Care Facility Care Department Encounter ID Source 2023-10-30 11:03:00 Outpatient Aleksandra Boswell STL[facility] STLMLC [id number] [facility] 2023-07-13 09:56:00 Outpatient Aleksandra Boswell STL[facility] STLMLC [id number] [facility] 2022-04-15 09:42:00 Outpatient Aleksandra Boswell STLMB[facility] STLMLC [id number] [facility] 2022-01-13 16:23:00 Outpatient LinwoodAleksandra mao STLMLC STLMLC [id number] [facility] 2021-10-13 07:49:00 Outpatient Aleksandra Boswell STLMLC STLMLC [id number] [facility] 2021-09-16 08:25:00 Outpatient Aleksandra Boswell STLMLC STLMLC [id number] [facility] 2021-09-15 08:15:01 Outpatient Aleksandra Boswell STLMLC STLMLC [id number] [facility] 2021-06-10 08:09:01 Outpatient Aleksandra Boswell STLMLC STLMLC [id number] [facility] 2021-04-07 11:06:27 Outpatient Aleksandra Boswell STLMLC STLMLC [id number] [facility] 2021-01-09 21:22:00 Emergency [facility] [id number] [facility] 2024-03-29 00:00:00 2024-03-29 00:00:00 OFFICE VISIT ESTAB PT LEVEL 4 STLMLC STLMLC [id number] [facility] 2024-01-31 00:00:00 2024-01-31 00:00:00 Génesis Lackey, MRB ENGINEER: [address], [place] [address], [place] [address] , Ph. [facility] - GC_GCBZW_[facility]* [id number] [facility] 2024-01-29 08:15:00 2024-01-29 08:31:28 Outpatient R DARRELL LOPEZ RAJ [facility] [id number] [facility] 2024-01-29 08:15:00 2024-01-29 08:31:28 Office Visit Darrell Lopez [facility] 1.2.840.114 350.1.13.10 4.2.7.2.686 [id number] [facility] 2024-01-03 15:44:49 2024-01-03 23:59:00 Outpatient R DARRELL LOPEZ RAJ [facility] [id number] [facility] 2024-01-03 15:44:49 2024-01-03 23:59:00 Hospital Encounter Darrell Lopez [facility] 1.2.840.114 350.1.13.10 4.2.7.2.686 [id number] [facility] 2024-01-01 09:15:00 2024-01-01 09:30:00 Patient Financial Advocate Visit 2, Adc Lab Darrell Lopez 2, [facility] 1.2.840.114 350.1.13.10 4.2.7.2.686 [id number] [facility] 2024-01-01 08:30:00 2024-01-01 08:55:04 Outpatient R DARRELL LOPEZ RAJ [facility] [id number] [facility] 2024-01-01 08:30:00 2024-01-01 08:55:04 [facility] 1.2.840.114 350.1.13.10 4.2.7.2.686 [id number] [facility] 2023-11-27 00:00:00 2023-11-27 00:00:00 (ESTPTWM) Establishe d PT Women STLMLC STLC [id number] [facility] 2023-11-17 07:41:19 2023-11-17 23:59:00 [facility] [id number] [facility] 2023-11-17 07:41:19 2023-11-17 23:59:00 [facility] 1.2840.114 350.1.13.10 4.2.7.2.686 [id number] [facility] 2023-10-31 10:15:00 2023-10-31 10:26:15 Outpatient R BRIGETTE [facility] [id number] [facility] 2023-10-31 10:15:00 2023-10-31 10:26:15 Office Visit Brigette [facility] 1.2.840.114 350.1.13.10 4.2.7.2.686 [id number] [facility] 2023-08-02 14:15:00 2023-08-02 14:30:00 Patient Financial Advocate Visit 2, Adc Lab [facility] 1.2.840.114 350.1.13.10 4.2.7.2.686 [id number] [facility] 2023-08-02 13:30:00 2023-08-02 14:25:04 Outpatient R [facility]ELITA [facility] [id number] [facility] 2023-08-02 13:30:00 2023-08-02 14:25:04 [facility] 1.2.840.114 350.1.13.10 4.2.7.2.686 [id number] [facility] 2023-07-31 08:45:00 2023-07-31 09:30:20 Outpatient R ALYSSA CAPONETNEY [facility] [id number] [facility] 2023-07-31 08:45:00 2023-07-31 09:00:00 Patient Financial Advocate Visit 2, [facility] 1..840.114 350.1.13.10 4.2.7.2.686 [id number] [facility] 2023-07-31 00:00:00 2023-07-31 00:00:00 Génesis Lackey, MRB ENGINEER: [address], [place] [address], [place] [address] , Ph. [facility] - GC_GCBZW_[facility]* [id number] [facility] 2023-07-13 00:00:00 2023-07-13 00:00:00 OFFICE VISIT ESTAB PT LEVEL 3 STLMLC STLMLC [id number] [facility] 2023-07-05 00:00:00 2023-07-05 00:00:00 [facility] 1..840.114 350.1.13.10 4.2.7.2.686 [id number] [facility] 2023-06-30 11:01:02 2023-06-30 23:59:00 [facility] [id number] [facility] 2023-06-30 11:00:00 2023-06-30 23:59:00 [facility]..840.114 350.1.13.10 4.2.7.2.686 [id number] [facility] 2023-06-28 08:30:00 2023-06-28 08:30:00 Outpatient R ALYSSA CAPONETNEY [facility] [id number] [facility] 2023-06-26 08:45:00 2023-06-26 09:00:00 Patient Financial Advocate Visit 2, [facility] Estelita [facility] 1.2.840.114 350.1.13.10 4.2.7.2.686 [id number] [facility] 2023-06-26 08:45:00 2023-06-26 08:53:37 Outpatient RINA LOPEZ [facility] [id number] [facility] 2023-06-23 11:45:00 2023-06-23 12:00:00 Patient Financial Advocate Visit 2, [facility] 1.2.840.114 350.1.13.10 4.2.7.2.686 [id number] [facility] 2023-06-23 10:30:00 2023-06-23 11:40:00 Office Visit Rina Capone [facility] 1.2.840.114 350.1.13.10 4.2.7.2.686 [id number] [facility] 2023-06-23 10:30:00 2023-06-23 11:40:00 Outpatient R ALYSSA CAPONETNEY [facility] [id number] [facility] 2023-04-28 00:00:00 2023-04-28 00:00:00 (TEL) STLMLC STLMLC [id number] [facility] 2023-03-14 00:00:00 2023-03-14 00:00:00 OFFICE VISIT ESTAB PT LEVEL 3 STLMLC STLMLC [id number] [facility] 2023-01-27 00:00:00 2023-01-27 00:00:00 Outpatient GC_GCBZW_Ka diyala_S PRIV PRIV [id number] [facility] 2023-01-11 00:00:00 2023-01-11 00:00:00 Outpatient GC_GCBZW_Ka diyala_S PRIV PRIV [id number] [facility] 2023-01-11 00:00:00 2023-01-11 00:00:00 Outpatient GC_GCBZW_Ka diyala_S PRIV PRIV [id number] [facility] 2022-11-11 00:00:00 2022-11-11 00:00:00 OFFICE VISIT ESTAB PT LEVEL 3 STLMLC STLMLC [id number] [facility] 2022-08-29 00:00:00 2022-08-29 00:00:00 (TEL) STLMLC STLMLC [id number] [facility] 2022-07-14 00:00:00 2022-07-14 00:00:00 OFFICE VISIT ESTAB PT LEVEL 3 STLMLC STLMLC [id number] [facility] 2022-05-10 00:00:00 2022-05-10 00:00:00 (TEL) STLMLC STLMLC [id number] [facility] 2022-04-19 00:00:00 2022-04-19 00:00:00 OFFICE VISIT ESTAB PT LEVEL 4 STLMLC STLMLC [id number] [facility] 2022-01-17 00:00:00 2022-01-17 00:00:00 OFFICE VISIT EST PT LEVEL 3 STLMLC STLMLC [id number] [facility] 2021-10-15 00:00:00 2021-10-15 00:00:00 OFFICE VISIT ESTAB PT LEVEL 4 STLMLC STLMLC [id number] [facility] 2021-10-07 00:00:00 2021-10-07 00:00:00 (TEL) STLMLC STLMLC [id number] [facility] 2021-09-21 00:00:00 2021-09-21 00:00:00 (TEL) STLMLC STLMLC [id number] [facility] 2021-09-17 00:00:00 2021-09-17 00:00:00 (TEL) STLMLC STLMLC [id number] [facility] 2021-09-15 00:00:00 2021-09-15 00:00:00 OFFICE VISIT EST PT LEVEL 3 STLMLC STLMLC [id number] [facility] 2021-09-02 00:00:00 2021-09-02 00:00:00 OFFICE VISIT EST PT LEVEL 3 STLMLC STLMLC [id number] [facility] 2021-08-31 00:00:00 2021-08-31 00:00:00 (TEL) STLMLC STLMLC [id number] [facility] 2021-06-14 00:00:00 2021-06-14 00:00:00 OFFICE VISIT EST PT LEVEL 3 STLMLC STLMLC [id number] [facility] 2021-05-11 00:00:00 2021-05-11 00:00:00 PREV VISIT EST AGE 40-64 STLMLC STLMLC [id number] [facility] 2021-04-30 00:00:00 2021-04-30 00:00:00 (TEL) STLMLC STLMLC [id number] [facility] 2021-04-02 00:00:00 2021-04-02 00:00:00 (TEL) STLMLC STLMLC [id number] [facility] 2021-03-07 14:17:00 2021-03-07 16:51:00 Emergency BRENNA ROB [facility] ERT [id number] [facility] 2021-03-07 14:17:00 2021-03-07 16:51:00 Emergency Brenna Darling [facility] 1.2.840.114 350.1.13.10 4.2.7.2.686 [id number] [facility] 2021-02-16 00:00:00 2021-02-16 00:00:00 OFFICE VISIT EST PT LEVEL 3 STLMLC STLMLC [id number] [facility] 2021-02-15 00:00:00 2021-02-15 00:00:00 (TEL) STLMLC STLMLC [id number] [facility] 2020-11-10 00:00:00 2020-11-10 00:00:00 OFFICE VISIT EST PT LEVEL 3 STLMLC STLMLC [id number] [facility] 2020-10-08 00:00:00 2020-10-08 00:00:00 Outpatient STLMLC STLMLC [id number] [facility] 2020-09-10 00:00:00 2020-09-10 00:00:00 Outpatient STLMLC STLMLC [id number] [facility] 2020-05-04 00:00:00 2020-05-04 00:00:00 Outpatient STLMLC STLMLC [id number] [facility] 2020-04-30 00:00:00 2020-04-30 00:00:00 Outpatient STLMLC STLMLC [id number] [facility] 2020-04-15 00:00:00 2020-04-15 00:00:00 Telephone Catherine Minaya [facility] 1.2.840.114 350.1.13.10 4.2.7.2.686 [id number] [facility] 2020-04-14 16:10:00 2020-04-14 17:54:00 Emergency Jose Cornelius [facility] 1.2.840.114 350.1.13.10 4.2.7.2.686 [id number] [facility] 2020-04-14 17:00:00 2020-04-14 17:00:00 Outpatient KANU ZACARIAS [facility] [id number] [facility] 2019-11-21 09:09:00 2019-11-21 09:09:00 [facility] [address] [facility] [id number] [facility] 2019-10-28 08:40:00 2019-10-28 08:40:[address] [facility] [address] [facility] [id number] [facility] 2019-05-01 15:05:00 2019-05-01 15:05:00 [address] [facility] [address] [facility] [id number] [facility] 2019-05-01 09:40:00 2019-05-01 09:40:00 [address] [facility] [address] [facility] [id number] [facility] 2019-04-19 11:18:00 2019-04-19 11:18:00 [facility] [address] [facility] [id number] [facility] 2018-05-21 11:31:00 2018-05-21 11:31:[address] [facility] [address] [facility] [id number] [facility] 2018-05-03 16:44:00 2018-05-03 16:44:[address] [facility] [address] [facility] [id number] [facility] 2018-04-30 08:30:00 2018-04-30 08:30:[address] [facility] [address] [facility] [id number] [facility] 2017-10-31 10:30:00 2017-10-31 10:30:[address] [facility] [address] [facility] [id number] [facility] 2017-08-08 15:45:00 2017-08-08 15:45:00 [facility] [id number] [facility] 2017-07-31 10:30:00 2017-07-31 10:30:00 [facility] [id number] [facility] Results Test Description Test Time Test Comments Results Result Co mments Source HEMOGLOBIN [id number] 00:00:00* Test Item Value Reference Range Interpretation Comme nts A1C (test code = 4548-4) 5.9 CT ABDOMEN PELVIS WO [id number] 00:51:34EXAM: CT ABDOMEN PELVIS WO CONTRAST ORDERING PROVIDER: FILIPE MACHUCA HISTORY: 53 years-old Female; Provided Ordering Indication: solitary rightkidney stone . TECHNIQUE: Contiguous axial imaging from the level of the lung basesthrough the proximal thighs was performed without the intravenousadministration of contrast. Coronal and sagittal reconstructions wereobtained. COMPARISON: CT abdomen pelvisobtained on 06/20/2023 FINDINGS: LOWER THORAX: The lung bases are clear. LIVER: The liver is enlargedat 20 cm in the craniocaudal dimension. Nosuspicious hepatic lesion is seen within a non contrast examination. GALLBLADDER AND BILIARY TREE: The gallbladder appears unremarkable. Nobiliary ductal dilation is visualized. SPLEEN: The spleen is normal in size. PANCREAS: No ductal dilation or solid mass is visualized. A 2.1 cm softtissue density at the distal pancreas is isodense to the pancreas and hadsimilar enhancement characteristics to the pancreas on 06/20/2023. ADRENAL GLANDS: No mass is seen.KIDNEYS: A small volume of soft tissue at the left renal fossa mayrepresent a severely dysplastic left kidney. A 5 mm stone is seen at theright interpolar region. No hydronephrosis or contour deforming solid massis present in the right kidney. Small cysts which were better visualized onthe prior contrast-enhanced CT appear grossly stable. PELVIS/BLADDER: The bladder is unremarkable. Hysterectomy changes arenoted. No suspicious pelvic mass is seen. GI TRACT: A large volume of solid stool is prese nt without obstruction. Anormal appendix is present in the right lower quadrant. No focal wallthickening or abnormal dilatation is visualized. PERITONEUM AND RETROPERITONEUM: No intra-abdominal free air or fluidcollection is visualized. A small fat-containing umbilical hernia ispresent. LYMPH NODES: No suspicious lymphadenopathy is seen. VESSELS: The vessels are grossly unremarkable. BONES AND SOFT TISSUES: No suspicious osseous lesion is seen[facility] [id number] 15:19:00* Test Item Value Reference Range Interpretation Comme nts POCT U SP GRAV (test code = 3255) 1.015 mg/dl 1.005-1.025 POCT PH U (test code = 3254) 7.0 mg/dl 5-8 POCT U LEUK EST (test code = 3263) trace Negative - Negative A POCT U NIT (test code = 3262) negative Negative - Negati ve POCT U PROT (test code = 3259) negative Negative - Negative POCT U GLU (test code = 3256) negative Negative - Negati ve POCT U KETONE (test code = 3258) negative Negative - Negative POCT U UROBILI (test code = 3260) 0.2 mg/dl 0.2-1 POCT U BILI (test code = 3261) negative Negative - Negative POCT U BLD (test code = 3257) negative Negative - Negati ve POCT U COLOR (test code = 3266) yellow POCT U APPEAR (test code = 3267) clear Lab Interpretation (test cod e = 29684-3) Abnormal [facility],US,[id number] 15:19:00* Test Item Value Reference Range Interpretation Comme nts PVR (URINE VOLUME) (test code = 5193) 0 ml 0-100 [facility] Urinalysis, [id number] 18:57:00 * Test Item Value Reference Range Interpretation Comme nts POCT U SP GRAV (test code = 3255) 1.025 mg/dl 1.005-1.025 POCT PH U (test code = 3254) 7.0 mg/dl 5-8 POCT U LEUK EST (test code = 3263) Negative Negative - Negative POCT U NIT (test code = 3262) Negative Negative - Negati ve POCT U PROT (test code = 3259) NEgative Negative - Negative POCT U GLU (test code = 3256) Negative Negative - Negati ve POCT U KETONE (test code = 3258) Negative Negative - Negative POCT U UROBILI (test code = 3260) 0.2 mg/dl 0.2-1 POCT U BILI (test code = 3261) Negative Negative - Negative POCT U BLD (test code = 3257) Negative Negative - Negati ve POCT U COLOR (test code = 3266) Yellow POCT U APPEAR (test code = 3267) Clear Lab Interpretation (test cod e = 02324-9) [facility] Urinalysis, [id number] 18:57:00 * Test Item Value Reference Range Interpretation Comme nts POCT U SP GRAV (test code = 3255) 1.025 mg/dl 1.005-1.025 POCT PH U (test code = 3254) 7.0 mg/dl 5-8 POCT U LEUK EST (test code = 3263) Negative Negative - Negative POCT U NIT (test code = 3262) Negative Negative - Negati ve POCT U PROT (test code = 3259) NEgative Negative - Negative POCT U GLU (test code = 3256) Negative Negative - Negati ve POCT U KETONE (test code = 3258) Negative Negative - Negative POCT U UROBILI (test code = 3260) 0.2 mg/dl 0.2-1 POCT U BILI (test code = 3261) Negative Negative - Negative POCT U BLD (test code = 3257) Negative Negative - Negati ve POCT U COLOR (test code = 3266) Yellow POCT U APPEAR (test code = 3267) Clear Lab Interpretation (test cod e = 32192-2) [facility] Urinalysis, [id number] 18:57:00 * Test Item Value Reference Range Interpretation Comme nts POCT U SP GRAV (test code = 3255) 1.025 mg/dl 1.005-1.025 POCT PH U (test code = 3254) 7.0 mg/dl 5-8 POCT U LEUK EST (test code = 3263) Negative Negative - Negative POCT U NIT (test code = 3262) Negative Negative - Negati ve POCT U PROT (test code = 3259) NEgative Negative - Negative POCT U GLU (test code = 3256) Negative Negative - Negati ve POCT U KETONE (test code = 3258) Negative Negative - Negative POCT U UROBILI (test code = 3260) 0.2 mg/dl 0.2-1 POCT U BILI (test code = 3261) Negative Negative - Negative POCT U BLD (test code = 3257) Negative Negative - Negati ve POCT U COLOR (test code = 3266) Yellow POCT U APPEAR (test code = 3267) Clear Lab Interpretation (test cod e = 04472-8) Normal [facility] [id number] 20:16:56 EXAM: US RETROPERITONEAL COMPLETE HISTORY: 53 years-old Female with 53 yo female with renal stone .TECHNIQUE: Ultrasound of kidneys and bladder was performed with grayscaleand selected color Dopplerimaging. Accounting Office Manager images were obtained forthe record. COMPARISON: CT abdomen pelvis dated 06/20/2023 FINDINGS: KIDNEYS:RIGHT:Length: Normal, 11.2 cm.Parenchyma: Normal renal cortical echogenicityand thickness. No focalsolid or cystic renal lesions are detected. A 5 mm echogenic structure withankle artifact is seen in the right kidney calyx.Collecting System: No hydronephrosis. LEFT:The left kidney is not visualized. BLADDER: Bladder is adequately distended and unremarkable. Pre-void volumeof 473 mLand post void volume of 9 mL demonstrate appropriate emptying of thebladder on immediate post voiding scan. Right ureteric jet is visualized. [facility], [id number] 15:58:00 * Test Item Value Reference Range Interpretation Comme nts POCT U SP GRAV (test code = 3255) 1.015 mg/dl 1.005-1.025 POCT PH U (test code = 3254) 6.0 mg/dl 5-8 POCT U LEUK EST (test code = 3263) negative Negative - Negative POCT U NIT (test code = 3262) negative Negative - Negati ve POCT U PROT (test code = 3259) negative Negative - Negative POCT U GLU (test code = 3256) negative Negative - Negati ve POCT U KETONE (test code = 3258) negative Negative - Negative POCT U UROBILI (test code = 3260) 0.2 mg/dl 0.2-1 POCT U BILI (test code = 3261) negative Negative - Negative POCT U BLD (test code = 3257) negative Negative - Negati ve POCT U COLOR (test code = 3266) yellow POCT U APPEAR (test code = 3267) clear [facility] Urinalysis, [id number] 15:58:00 * Test Item Value Reference Range Interpretation Comme nts POCT U SP GRAV (test code = 3255) 1.015 mg/dl 1.005-1.025 POCT PH U (test code = 3254) 6.0 mg/dl 5-8 POCT U LEUK EST (test code = 3263) negative Negative - Negative POCT U NIT (test code = 3262) negative Negative - Negati ve POCT U PROT (test code = 3259) negative Negative - Negative POCT U GLU (test code = 3256) negative Negative - Negati ve POCT U KETONE (test code = 3258) negative Negative - Negative POCT U UROBILI (test code = 3260) 0.2 mg/dl 0.2-1 POCT U BILI (test code = 3261) negative Negative - Negative POCT U BLD (test code = 3257) negative Negative - Negati ve POCT U COLOR (test code = 3266) yellow POCT U APPEAR (test code = 3267) clear [facility] Urinalysis, [id number] 15:58:00 * Test Item Value Reference Range Interpretation Comme nts POCT U SP GRAV (test code = 3255) 1.015 mg/dl 1.005-1.025 POCT PH U (test code = 3254) 6.0 mg/dl 5-8 POCT U LEUK EST (test code = 3263) negative Negative - Negative POCT U NIT (test code = 3262) negative Negative - Negati ve POCT U PROT (test code = 3259) negative Negative - Negative POCT U GLU (test code = 3256) negative Negative - Negati ve POCT U KETONE (test code = 3258) negative Negative - Negative POCT U UROBILI (test code = 3260) 0.2 mg/dl 0.2-1 POCT U BILI (test code = 3261) negative Negative - Negative POCT U BLD (test code = 3257) negative Negative - Negati ve POCT U COLOR (test code = 3266) yellow POCT U APPEAR (test code = 3267) clear [facility]-18 00:00:00* Test Item Value Reference Range Interpretation Comme nts ALBUMIN (test code = 1751-7) 3.6 g/dL See_Comment N [Automated message] The system [...] normal/abnormal. ALKALINE PHOSPHATASE (test code = 6768-6) 53 U/L See_Comment N [Automated message] The system which generated this result transmitted reference range: 37-153 U/L. The reference range was not used to interpret this result as normal/abnormal. ALT (test code = 1742-6) 11 U/L See_Comment N [Automated message] The system which generated this result transmitted reference range: 6-29 U/L. The reference range was not used to interpret this result as normal/abnormal. AST (test code = 1920-8) 12 U/L See_Comment N [Automated message] The system which generated this result transmitted reference range: 10-35 U/L. The reference range was not used to interpret this result as normal/abnormal. BILIRUBIN, TOTAL (test code = 1975-2) 0.3 mg/dL See_Comment N [Automated message] The system [...] result as normal/abnormal. CALCIUM (test code = 60066-8) 9.8 mg/dL See_Comment N [Automated message] The system which generated this result transmitted reference range: 8.6-10.4 mg/dL. The reference range was not used to interpret this result as normal/abnormal. CARBON DIOXIDE (test code = 2027-9) 29 mmol/L See_Comment N [Automated message] The system [...] as normal/abnormal. CREATININE (test code = 2160-0) 1.03 mg/dL See_Comment N [Automated message] The system which generated this result transmitted reference range: 0.50-1.03 mg/dL. The reference range was not used to interpret this result as normal/abnormal. GLOBULIN (test code = 48023-9) 3.5 g/dL (calc) See_Comment N [Automated message] The system which generated this result transmitted reference range: 1.9-3.7 g/dL (calc). The reference range was not used to interpret this result as normal/abnormal. GLUCOSE (test code = 2345-7) 117 mg/dL See_Comment H [Automated message] The system which generated this result transmitted reference range: 65-99 mg/dL. The reference range was not used to interpret this result as normal/abnormal. POTASSIUM (test code = 2823-3) 4.1 mmol/L See_Comment N [Automated message] The system which generated this result transmitted reference range: 3.5-5.3 mmol/L. The reference range was not used to interpret this result as normal/abnormal. PROTEIN, TOTAL (test code = 2885-2) 7.1 g/dL See_Comment N [Automated message] The system which generated this result transmitted reference range: 6.1-8.1 g/dL. The reference range was not used to interpret this result as normal/abnormal. SODIUM (test code = 2951-2) 138 mmol/L See_Comment N [Automated message] The system [...] as normal/abnormal. CARBON DIOXIDE (test code = 8-9) 30 mmol/L See_Comment N [Automated message] The system which generated this result transmitted reference range: 20-32 mmol/L. The reference range was not used to interpret this result as normal/abnormal. CALCIUM (test code = 16331-8) 8.9 mg/dL See_Comment N [Automated message] The [...] result as normal/abnormal. GLOBULIN (test code = 10184-0) 3.6 g/dL (calc) See_Comment N [Automated message] [...] to interpret this result as normal/abnormal. TROPONIN [id number] 22:28:08* Test Item Value Reference Range Interpretation Comments TROPONIN I (test code = 6013756034) 0.004 ng/mL See_Comment [Automated message] The system [...] of biotin. Lab Interpretation (test code = 96111-6) Normal [facility]. METABOLIC PANEL (07783)2021-03-07 22:21:06* Test Item Value Reference Range Interpretation Comme nts NA (test code = 5873402125) 135 mmol/L 135-145 K (test code = 8026137720) 4.1 mmol/L 3.5-5.0 CL (test code = 8164066267) 103 mmol/L 98-108 CO2 TOTAL (test code = 4581012535) 26 mmol/L 23-31 AGAP (test code = 7636129671) 2-16 BUN (test code = 4676423798) 20 mg/dL 7-23 GLUCOSE (test code = 1380260058) 114 mg/dL 70-110 H CREATININE (test code = 3451810349) 0.89 mg/dL 0.50-1.04 TOTAL BILI (test code = 9608777069) 0.3 mg/dL 0.1-1.1 CALCIUM (test code = 9595795068) 8.6 mg/dL 8.6-10.6 T PROTEIN (test code = 9568528422) 7.1 g/dL 6.3-8.2 ALBUMIN (test code = 4853711198) 3.7 g/dL 3.5-5.0 ALK PHOS (test code = 4057486094) 71 U/L 34-122 ALTv (test code = 1742-6) 14 U/L 5-35 AST(SGOT) (test code = 1385499329) 20 U/L 13-40 eGFR (test code = 5298787233) mL/min/1.73m2 ELZA (test code = ELZA) Association [...] imaging tests). Lab Interpretation (test code = 04831-7) Abnormal [facility] WITH [id number] 22:07:08* Test Item Value Reference Range Interpretation Comme nts WBC (test code = 6690-2) See_Comment [Automated [employer]] The system which generated this result transmitted reference range: 4.30 - 11.10 10*3/?L. The reference range was not used to interpret this result as normal/abnormal. RBC (test code = 789-8) See_Comment [Automated [employer]] The system which generated this result [...] 33.9 g/dL 31.6-35.1 RDW-SD (test code = 37376-2) 45.0 fL 39.0-49.9 RDW-CV (test code = 788-0) 13.7 % 12.0-15.5 PLT (test code = 777-3) See_Comment [Automated [employer]] The system which generated this result transmitted reference range: 166 - 358 10*3/?L. The reference range was not used to interpret this result as normal/abnormal. MPV (test code = 01436-3) 10.9 fL 9.5-12.9 NRBC/100 WBC (test code = 0558877405) See_Comment [Automated [employer]] The system which generated this result transmitted reference range: 0.0 - 10.0 /100 WBCs. The reference range was not used to interpret this result as normal/abnormal. NRBC x10^3 (test code = 5233826127) <0.01 See_Comment [Automated [employer]] The system which generated this result transmitted reference range: 10*3/?L. The reference range was not used to interpret this result as normal/abnormal. GRAN MAT (NEUT) % (test code = 770-8) 65.5 % IMM GRAN % (test code = 6989528088) 0.30 % LYMPH % (test code = 736-9) 27.5 % MONO % (test code = 5905-5) 5.9 % EOS % (test code = 713-8) 0.4 % BASO % (test code = 706-2) 0.4 % GRAN MAT x10^3(ANC) (test code = 2876808712) 5.03 10*3/uL 1.88-7.09 IMM GRAN x10^3 (test code = 6155326913) <0.03 0.00-0.06 LYMPH x10^3 (test code = 731-0) 2.11 10*3/uL 1.32-3.29 MONO x10^3 (test code = 742-7) 0.45 10*3/uL 0.33-0.92 EOS x10^3 (test code = 711-2) 0.03 10*3/uL 0.03-0.39 BASO x10^3 (test code = 704-7) 0.03 10*3/uL 0.01-0.07 [facility] 23:18:00* Test Item Value Reference Range Interpretation Comme nts POCT GLU (test code = 8479935794) 87 mg/dL 70-110 Lab Interpretation (test cod e = 71445-1) Normal [facility]58:00* Test Item Value Reference Range Interpretation Comme nts APPEARANCE (test code = 5467152597) Clear Clear COLOR (test code = 2989007350) Straw Yellow A PH (test code = 3950652208) 4.8-8.0 SP GRAVITY (test code = 9767373144) 1.003-1.030 GLU U QUAL (test code = 5278707815) Normal Normal BLOOD (test code = 0333407733) Negative Negative KETONES (test code = 9506198937) Negative Negative PROTEIN (test code = 2887-8) Negative Negative UROBILIN (test code = 9649143623) Normal Normal BILIRUBIN (test code = 5274058257) Negative Negative NITRITE (test code = 1639980102) Negative Negative LEUK OLENA (test code = 2973216653) Negative Negative RBC/HPF (test code = 1618338179) See_Comment [Automated [employer]] The system which generated this result transmitted reference range: 0 - 3 HPF. The reference range was not used to interpret this result as normal/abnormal. WBC/HPF (test code = 3852859273) <1 See_Comment [Automated messa ge] The system which generated this result transmitted reference range: 0 - 5 HPF. The reference range was not used to interpret this result as normal/abnormal. BACTERIA (test code = 0223823585) Few Negative A SQ EPITH (test code = 6938616683) HPF TRANS EPI (test code = 4040416472) <1 See_Comment [Automated messa ge] The system which generated this result transmitted reference range: <=1 HPF. The reference range was not used to interpret this result as normal/abnormal. Lab Interpretation (test code = 97701-1) Abnormal [facility] Notes Date/Time Note Provider Source 2024-01-01 09:15:00 Images from the original note were not included. Venipuncture collection performed by clean technique on the left anticubitus. Total of 1 attempts were made. Slight pressure and a bandage/dressing were applied to the site(s). The patient experienced no complications. The following specimens were processed according to instructions and sent to [facility] laboratories per lab order on 01/01/2024 : LT BLUE SST 2 RED LAV PPT DK GREEN (LiHep) DK GREEN (SodH) LEDBETTER DK BLUE (K2) DK BLUE (S) ACD Blood Culture NIPT/NTD [facility] 2023-10-31 10:15:00 Addended by: FILIPE MACHUCA on: 12/17/2023 04:03 PM Modules accepted: Orders [facility] 2023-08-02 14:15:00 Images from the original note were not included. Venipuncture collection performed by clean technique on the left anticubitus. Total of 1 attempts were made. Slight pressure and a bandage/dressing were applied to the site(s). The patient experienced no complications. The following specimens were processed according to instructions and sent to [facility] laboratories per lab order on 08/02/2023: LT BLUE SST 1 RED LAV PPT DK GREEN (LiHep) DK GREEN (SodH) LEDBETTER DK BLUE (K2) DK BLUE (S) ACD Blood Culture NIPT/NTD [facility] 2023-07-31 08:45:00 Images from the original note were not included. Venipuncture collection performed by clean technique on the left anticubitus. Total of 1 attempts were made. Slight pressure and a bandage/dressing were applied to the site(s). The patient experienced no complications. The following specimens were processed according to instructions and sent to [facility] laboratories per lab order on today: LT BLUE SST 1 RED LAV PPT DK GREEN (LiHep) DK GREEN (SodH) LEDBETTER DK BLUE (K2) DK BLUE (S) ACD Blood Culture NIPT/NTD [facility] 2023-06-26 08:45:00 Patient presented with specimen for drop-off and was identified byDOB. Collection information/ total volume were documented accordingly. The following specimens were sent to [facility] laboratories per lab order on 06/26/2023 : 24 hour urine 1 Random urine Stool Swab Other T [facility] 2023-06-23 11:45:00 Images from the original note were not included. Venipuncture collection performed by clean technique on the right anticubitus. Total of 1 attempts were made. Slight pressure and a bandage/dressing were applied to the site(s). The patient experienced no complications. The following specimens were processed according to instructions and sent to [facility] laboratories per lab order on 06/23/2023: LT BLUE SST 2 RED LAV 1 PPT DK GREEN (LiHep) DK GREEN (SodH) LEDBETTER DK BLUE (K2) DK BLUE (S) ACD Blood Culture NIPT/NTD [facility] 2023-06-23 10:30:00 Addended by: RINA DALEY on: 06/27/2023 08:12 AM Modules accepted: Orders [facility]"
--- NOTE | 2024-05-16 18:14 | RAD REPORT ---
EXAMINATION: XR Hip Right 2 View CLINICAL INDICATION: Female, 54 years old. [facility] MAIN PAIN Bed Name: 2 TECHNIQUE: 2 view radiograph of the right hip were obtained. COMPARISON: No prior exam. FINDINGS: No evidence of fracture or dislocation. Normal alignment. No evidence of arthropathy or oth er focal bone lesion. Soft tissues are unremarkable. IMPRESSION: No acute or significant abnormalities.
--- NOTE | 2024-05-16 18:14 | RAD REPORT ---
EXAMINATION: XR PELVIS CLINICAL INDICATION: Female, 54 years old. [facility] MAIN PAIN Bed Name: [facility] TECHNIQUE: AP Pelvis radiograph was obtained. COMPARISON: No prior exam. FINDINGS: No evidence of fracture or dislocation. Normal alignment. No evidence of AVN. Soft tissues are unremarkable. IMPRESSION: No acute or significant abnormalities.
--- NOTE | 2024-05-16 19:32 | RAD REPORT ---
EXAMINATION: CT LUMBAR SPINE WITHOUT CONTRAST CLINICAL INDICATION: Female, 54 years old. Pain;Radiculopathy TECHNIQUE: Axial CT images were obtained through the lumbar spine in soft tissue and bone windows wit hout intravenous contrast. Coronal and Sagittal reformatted images were created from the data set. One or more of the following dose reduction techniques were used: Automated exposure control, adjustm ent of the mA and/ or kV according to patient size, and/or iterative reconstruction. Unless otherwise specified, incidental findings do not require dedicated imaging follow-up. COMPARISON: CT abdomen and pelvis 06/20/2023 FINDINGS: For purposes of this dictation, it is assumed that there are 5 non rib-bearing lumbar type vertebrae, and the most caudal fully segmented lumbar vertebra is labeled L5. ALIGNMENT: The lumbar spine demonstrates normal alignment without scoliosis or spondylolisthesis. BONES: Vertebral body heights are preserved. No aggressive osseous lesions. DISCS: Intervertebral disc space heights are maintained. LEVELS: No significant bony central canal stenosis. Right foraminal soft tissue density which may rep resent a disc extrusion at L4-5, somewhat cranially migrated, measuring 11 mm, appears to encroach upon the exiting right L4 nerve root. Alternatively this may represent a perineural cyst. Other multi level disc bulges with small herniations, with up to mild to moderate degrees of neural foraminal narrowing most notably at L5-S1 bilaterally. SOFT TISSUE: No soft tissue abnormalities. Likely atrophic left kidney again seen. Right renal interp olar 6 mm calculus. IMPRESSION: Right foraminal zone 11 mm soft tissue density at L4-5, may represent a disc extrusion, appears to en croach upon the exiting right L4 nerve root. Please correlate for symptoms in that distribution, and consider additional evaluation by dedicated lumbar spine MRI. Other findings as detailed above.
[2024-05-16 19:47] LABS: Specific Gravity 1.024 (1.005-1.030); Sqamous Epithelial <5 /HPF (None Seen); Urine Bacteria None Seen /HPF (<20); Urine Bilirubin NEGATIVE (Negative); Urine Blood Negative (Negative); Urine Clarity Turbid (Clear); Urine Color Yellow (Yellow); Urine Crystals Unidentified Few /HPF (None Seen); Urine Culture Reflex Order NOT NEEDED; Urine Glucose NEGATIVE (Negative); Urine Ketones NEGATIVE (Negative); Urine Microscopic Reflex YN ORDER UMIC; Urine Mucus Slight /HPF (None Seen); Urine Nitrite NEGATIVE (Negative); Urine Protein NEGATIVE (Negative); Urine RBC <5 /HPF (None Seen); Urine Urobilinogen Normal (Normal); Urine WBC <5 /HPF (<5); Urine WBC Clump Rare /HPF (None Seen); Urine Yeast (Budding) Trace /HPF (None Seen); Urine pH 6.5 (5.0-7.0)
[2024-05-16] MEDS ORDERED: dexAMETHasone 10 MG/ML VIAL ONE (20:12)
[2024-05-16] MEDS ORDERED: KETOROLAC 30 MG/ML INJ ONE (20:12)
[2024-05-16] MEDS ORDERED: ONDANSETRON 4 MG/2 ML VIAL ONE (20:12)
[2024-05-16] MEDS ORDERED: DIAZEPAM 5 MG TABLET ONE (20:12)
[2024-05-16] MEDS ORDERED: NA CHLORIDE 0.9% 1,000 ML ONE (20:12)
[2024-05-16 20:16] LABS: Absolute Basophils 0.1 K/uL (0-0.5); Absolute Eosinophils 0.2 K/uL (0-0.5); Absolute Lymphocytes (CBC) 2.8 K/uL (0.7-4.9); Absolute Monocytes 0.5 K/uL (0.1-1.3); Absolute Neutrophil 2.5 K/uL (1.8-8.0); Basophils % 1.2 % (0-1.3); Eosinophils % 2.7 % (0-4.4); Hematocrit 34.7 % (36.0-45.0); Hemoglobin 11.8 g/dL (12.0-15.0); Lymphocytes % 46.7 % (15.3-44.8); MCHC 34.1 g/dL (32.0-36.0); MPV 9.4 fL (7.6-11.3); Monocytes % 7.9 % (3.3-12.3); Neutrophils % 41.5 % (41.7-73.7); Nucleated Red Blood Cells % 0.1 % (0-0); Platelets 218 thou/uL (152-406); RBC Red Blood Cell Count 3.69 M/uL (3.86-4.86); Red Cell Distribution Width 14.1 % (12.1-15.2)
[2024-05-16 20:41] LABS: Albumin/Globulin Ratio 0.8 (1.1-1.8); Anion Gap 6.3 mEq/L (5.0-15.0); Bilirubin Total 0.3 mg/dL (0.2-1.0); Globulin 3.9 g/dL (2.3-3.5); Potassium 4.3 mEq/L (3.5-5.1); Protein, Total 6.9 g/dL (6.4-8.2)
--- NOTE | 2024-05-16 21:06 | ER ---
Nurse's Notes [facility] Name: Greg Fragoso Age: 54 yrs Sex: Female : 1970 Arrival Date: 05/16/2024 Time: 16:40 Bed 5 Private MD: Diagnosis: Low back pain;Muscle spasm of back;Contusion of right hip;Injury of muscle, fascia and tendon of abdomen, lower back and pelvis;Sciatica, right side Presentation: 05/16 17:02 Chief complaint: Right low back pain that radiates to right leg x 6 days. Coronavirus hb screen: At this time, the client does not indicate any symptoms associated with coronavirus-19. Ebola Screen: No symptoms or risks identified at this time. Initial Sepsis Screen: Does the patient meet any 2 criteria? No. Patient's initial sepsis screen is negative. Does the patient have a suspected source of infection? No. Patient's initial sepsis screen is negative. Risk Assessment: Do you want to hurt yourself or someone else? Patient reports no desire to harm self or others. Onset of symptoms was May 10, 2024. 17:02 Method Of Arrival: Ambulatory hb 17:02 Acuity: JOHNIE 4 hb Historical: - Allergies: 17:04 No Known Allergies; hb - PMHx: 17:04 Hypertensive disorder; hb - PSHx: 17:04 hysterectomy; hb - Immunization history:: Adult Immunizations up to date. - Infectious Disease History:: Denies. - Social history:: Smoking status: Patient denies any tobacco usage or history of. - Family history:: not pertinent. Screenin:11 [facility] ED Fall Risk Assessment (Adult) History of falling in the last 3 months, vc1 including since admission No falls in past 3 months (0 pts) Confusion or Disorientation No (0 pts) Intoxicated or Sedated No (0 pts) Impaired Gait Yes (1 pt) Mobility Assist Device Used No (0 pt) Altered Elimination No (0 pt) Score/Fall Risk Level 0 - 2 = Low Risk Oriented to surroundings, Maintained a safe environment, Educated pt \T\ family on fall prevention, incl call for assistance when getting out of bed. Abuse screen: Denies threats or abuse. Nutritional screening: No deficits noted. Tuberculosis screening: No symptoms or risk factors identified. Assessment: 21:16 General: Appears comfortable, well groomed, well developed, well nourished, Behavior is vc1 calm, cooperative, appropriate for age. Pain: Complains of pain in right low back Pain radiates to right gluteus christine and right leg Pain currently is 10 out of 10 on a pain scale. Neuro: Level of Consciousness is awake, alert, obeys commands. Cardiovascular: Heart tones S1 S2 Capillary refill < 3 seconds. Respiratory: Airway is patent Respiratory effort is even, unlabored, Respiratory pattern is regular, symmetrical, Breath sounds are clear bilaterally. GI: No deficits noted. No signs and/or symptoms were reported involving the gastrointestinal system. : No deficits noted. No signs and/or symptoms were reported regarding the genitourinary system. EENT: No deficits noted. No signs and/or symptoms were reported regarding the EENT system. Derm: Skin is intact, is healthy with good turgor, Skin is dry, Skin is normal, Skin temperature is warm. Musculoskeletal: Circulation, motion, and sensation intact. Range of motion: intact in all extremities. 21:18 Reassessment: Patient and/or family updated on plan of care and expected duration. Pain vc1 level reassessed. Patient is alert, oriented x 3, equal unlabored respirations, skin warm/dry/pink. Patient states symptoms have improved. Vital Signs: 17:02 BP 124 / 69; Pulse 81; Resp 16; Temp 97.6; Pulse Ox 100% ; Weight 91.63 kg; Height 5 hb ft. 4 in. ; Pain 10/10; 21:11 BP 123 / 76; Pulse 68; Resp 18; Pulse Ox 98% on R/A; oe 17:02 Body Mass Index 34.67 (91.63 kg, 162.56 cm) hb 17:02 Pain Scale: Adult hb ED Course: 16:45 Patient arrived in ED. al6 16:47 Dheeraj Miranda MD is Attending Physician. chin 17:04 Triage completed. hb 17:04 Arm band placed on. hb 17:39 Pelvis XRAY In Process Unspecified. EDMS 17:39 Hip Right 2 View XRAY In Process Unspecified. EDMS 18:15 Roc Mercado, TONIO is Primary Nurse. bp 18:21 Kayla Isaac PA-C is PHCP. sb4 18:31 CT Lumbar Spine Wo Con In Process Unspecified. EDMS 19:00 Patient has correct armband on for positive identification. Bed in low position. Pulse vc1 ox on. NIBP on. 19:00 Provided Education on: call light. vc1 21:05 Angle Schaffer MD is Referral Physician. sb4 21:11 No provider procedures requiring assistance completed. IV discontinued, intact, vc1 bleeding controlled, No redness/swelling at site. Pressure dressing applied. Administered Medications: 20:27 Drug: NS 0.9% IV 1000 ml IV at 1000 ml once; to be given as a bolus over 60 minutes vc1 Route: IV; Rate: 1000 ml; Site: right antecubital; 21:19 Follow up: IV Status: Completed infusion vc1 20:27 Drug: Ketorolac IVP 30 mg IVP once Route: IVP; Site: right antecubital; vc1 21:19 Follow up: Response: No adverse reaction; Marked relief of symptoms vc1 20:27 Drug: Ondansetron IVP 4 mg IVP once; over 2 minutes Route: IVP; Site: right antecubital;vc1 21:19 Follow up: Response: No adverse reaction; Marked relief of symptoms vc1 20:27 Drug: Diazepam PO 10 mg PO once Route: PO; vc1 21:19 Follow up: Response: No adverse reaction; Marked relief of symptoms vc1 20:27 Drug: Decadron - Dexamethasone IVP 10 mg IVP once Route: IVP; Site: right antecubital; vc1 21:18 Follow up: Response: No adverse reaction; Marked relief of symptoms vc1 Medication: 21:11 VIS not applicable for this client. vc1 Outcome: 21:05 Discharge ordered by . sb4 22:08 Discharged to home ambulatory, vc1 22:08 Condition: stable 22:08 Discharge instructions given to patient, Instructed on discharge instructions, follow up and referral plans. medication usage, Demonstrated understanding of instructions, follow-up care, medications, Prescriptions given X 4, 22:08 Patient left the ED. vc1 Signatures: Dispatcher [employer] EDNC Dheeraj Miranda MD MD cha Baxter, Heather, RN RN Ian Baird Brian, RN RN bp Calcote, Vanessa, RN RN vc1 Kayla Isaac PA-C PADevang sb4 Leticia Carpenter Corrections: (The following items were deleted from the chart) 17:04 17:02 Pulse 81bpm; Resp 16bpm; Pulse Ox 100%; Temp 97.6F; 91.63 kg; Height 5 ft. 4 in.; hb BMI: 34.6; Pain 10, Adult; hb 17:05 17:02 Acuity: JOHNIE 3 hb hb
--- NOTE | 2024-05-16 21:06 | EDPHYS ---
Physician Documentation [facility] Name: Greg Fragoso Age: 54 yrs Sex: Female : 1970 Arrival Date: 05/16/2024 Time: 16:40 Bed 5 Private MD: ED Physician Dheeraj Miranda HPI: 05/16 17:21 This 54 yrs old Black Female presents to ER via Ambulatory with complaints of Back Pain.chin 17:21 The patient presents with pain that is acute, and decreased range of motion, and an chin injury. The symptoms are located in the low back, lumbar area and right low back. Onset: The symptoms/episode began/occurred 2 day(s) ago. The pain radiates. Associated signs and symptoms: The patient has no apparent associated signs or symptoms. The problem was sustained hit by basket. Modifying factors: The patient symptoms are alleviated by remaining still, rest, the patient symptoms are aggravated by any movement, standing, walking. Severity of symptoms: At their worst the symptoms were moderate, in the emergency department the symptoms are unchanged. The patient has not experienced similar symptoms in the past. Historical: - Allergies: 17:04 No Known Allergies; hb - PMHx: 17:04 Hypertensive disorder; hb - PSHx: 17:04 hysterectomy; hb - Immunization history:: Adult Immunizations up to date. - Infectious Disease History:: Denies. - Social history:: Smoking status: Patient denies any tobacco usage or history of. - Family history:: not pertinent. ROS: 17:21 Constitutional: Negative for fever, chills, and weight loss, Eyes: Negative for injury, chin pain, redness, and discharge, ENT: Negative for injury, pain, and discharge, Neck: Negative for injury, pain, and swelling, Cardiovascular: Negative for chest pain, palpitations, and edema, Respiratory: Negative for shortness of breath, cough, wheezing, and pleuritic chest pain, Abdomen/GI: Negative for abdominal pain, nausea, vomiting, diarrhea, and constipation, : Negative for injury, bleeding, discharge, and swelling, Skin: Negative for injury, rash, and discoloration, Neuro: Negative for headache, weakness, numbness, tingling, and seizure, Psych: Negative for depression, anxiety, suicide ideation, homicidal ideation, and hallucinations, Allergy/Immunology: Negative for hives, rash, and allergies, Endocrine: Negative for neck swelling, polydipsia, polyuria, polyphagia, and marked weight changes, Hematologic/Lymphatic: Negative for swollen nodes, abnormal bleeding, and unusual bruising, 17:21 Back: Positive for pain at rest, flank pain, of the lumbar area and right low back, Exam: 17:21 Constitutional: This is a well developed, well nourished patient who is awake, alert, chin and in no acute distress. Head/Face: Normocephalic, atraumatic. Eyes: Pupils equal round and reactive to light, extra-ocular motions intact. Lids and lashes normal. Conjunctiva and sclera are non-icteric and not injected. Cornea within normal limits. Periorbital areas with no swelling, redness, or edema. ENT: Nares patent. No nasal discharge, no septal abnormalities noted. Tympanic membranes are normal and external auditory canals are clear. Oropharynx with no redness, swelling, or masses, exudates, or evidence of obstruction, uvula midline. Mucous membranes moist. Neck: Trachea midline, no thyromegaly or masses palpated, and no cervical lymphadenopathy. Supple, full range of motion without nuchal rigidity, or vertebral point tenderness. No Meningismus. Chest/axilla: Normal chest wall appearance and motion. Nontender with no deformity. No lesions are appreciated. Cardiovascular: Regular rate and rhythm with a normal S1 and S2. No gallops, murmurs, or rubs. Normal PMI, no JVD. No pulse deficits. Respiratory: Lungs have equal breath sounds bilaterally, clear to auscultation and percussion. No rales, rhonchi or wheezes noted. No increased work of breathing, no retractions or nasal flaring. Abdomen/GI: Soft, non-tender, with normal bowel sounds. No distension or tympany. No guarding or rebound. No evidence of tenderness throughout. Skin: Warm, dry with normal turgor. Normal color with no rashes, no lesions, and no evidence of cellulitis. Neuro: Awake and alert, GCS 15, oriented to person, place, time, and situation. Cranial nerves II-XII grossly intact. Motor strength 5/5 in all extremities. Sensory grossly intact. Cerebellar exam normal. Normal gait. Psych: Awake, alert, with orientation to person, place and time. Behavior, mood, and affect are within normal limits. 17:21 Back: pain, that is moderate, ROM is painful, normal spinal alignment noted, CVA tenderness, is absent, muscle spasm, is appreciated in the right low back, Vital Signs: 17:02 BP 124 / 69; Pulse 81; Resp 16; Temp 97.6; Pulse Ox 100% ; Weight 91.63 kg; Height 5 hb ft. 4 in. ; Pain 10/10; 21:11 BP 123 / 76; Pulse 68; Resp 18; Pulse Ox 98% on R/A; oe 17:02 Body Mass Index 34.67 (91.63 kg, 162.56 cm) hb 17:02 Pain Scale: Adult hb MDM: 16:47 Medical Screening Exam initiated [facility] 17:27 Differential diagnosis: chronic back pain, Fatigue Fracture Obesity ruptured disc, chin Scoliosis spinal injury, sprain, vertebral fracture. Data reviewed: vital signs, nurses notes, lab test result(s), radiologic studies, CT scan, plain films. Consideration of Admission/Observation Escalation of care including admission/observation considered. I considered the following discharge prescriptions or medication management in the emergency department Medications were administered in the Emergency Department. See MAR. Independent interpretation of the following test(s) in the Emergency Department CT Scan: My interpretation is ct lumbar. Test considered but Not performed: CT: no ct hip. Care significantly affected by the following chronic conditions: Hypertension, Obesity. 05/16 17:16 Order name: CBC with Diff; Complete Time: 20:22 [facility] 05/16 17:16 Order name: Comprehensive Metabolic Panel; Complete Time: 20:41 [facility] 05/16 17:16 Order name: Urinalysis w/ reflexes; Complete Time: 19:48 [facility] 05/16 17:16 Order name: Pelvis XRAY; Complete Time: 18:22 [facility] 05/16 17:16 Order name: Hip Right 2 View XRAY; Complete Time: 18:22 [facility] 05/16 18:01 Order name: CT Lumbar Spine Wo Con; Complete Time: 19:33 [facility] Administered Medications: 20:27 Drug: NS 0.9% IV 1000 ml IV at 1000 ml once; to be given as a bolus over 60 minutes vc1 Route: IV; Rate: 1000 ml; Site: right antecubital; 21:19 Follow up: IV Status: Completed infusion vc1 20:27 Drug: Ketorolac IVP 30 mg IVP once Route: IVP; Site: right antecubital; vc1 21:19 Follow up: Response: No adverse reaction; Marked relief of symptoms vc1 20:27 Drug: Ondansetron IVP 4 mg IVP once; over 2 minutes Route: IVP; Site: right antecubital;vc1 21:19 Follow up: Response: No adverse reaction; Marked relief of symptoms vc1 20:27 Drug: Diazepam PO 10 mg PO once Route: PO; vc1 21:19 Follow up: Response: No adverse reaction; Marked relief of symptoms vc1 20:27 Drug: Decadron - Dexamethasone IVP 10 mg IVP once Route: IVP; Site: right antecubital; vc1 21:18 Follow up: Response: No adverse reaction; Marked relief of symptoms vc1 Disposition Summary: 05/16/24 21:05 Discharge Ordered Notes: Location: Home sb4 Problem: new sb4 Symptoms: have improved sb4 Condition: Stable sb4 Diagnosis - Low back pain sb4 - Muscle spasm of back sb4 - Contusion of right hip sb4 - Injury of muscle, fascia and tendon of abdomen, lower back and pelvis sb4 - Sciatica, right side sb4 Followup: chin - With: Private Physician - When: 2 - 3 days - Reason: Recheck today's complaints, Continuance of care, Re-evaluation by your physician Followup: chin - With: Angel Schaffer MD - When: 2 - 3 days - Reason: Recheck today's complaints, Re-evaluation by your physician Discharge Instructions: - Discharge Summary Sheet chin - Acute Back Pain, Adult chin - Muscle Cramps and Spasms chin - Musculoskeletal Pain cihn - Sciatica chin - Muscle Cramps and Spasms, [id number] chin - Sciatica, [id number] chin Forms: - Work release form vc1 - Medication Reconciliation Form sb4 - Antibiotic Education sb4 - Prescription Opioid Use sb4 - Patient Portal Instructions sb4 - Leadership Thank You Letter sb4 Prescriptions: - diclofenac sodium 50 mg Oral tablet, delayed release (enteric coated) - take 1 tablet ORAL route 3 times per day; 21 tablet; Refills: 0, Product chin Selection Permitted - methocarbamol 750 mg Oral tablet - take 1 tablet ORAL route 4 times per day; 28 tablet; Refills: 0, Product chin Selection Permitted - Tylenol-Codeine #3 300mg-30mg Oral tablet - take 2 tablets ORAL route every 6 hours As needed; 20 tablet; Refills: 0, [facility] Product Selection Permitted - Dexamethasone 4mg Oral tablet - take 1 tablet ORAL route daily for 4 days; 4 tablet; Refills: 0, Product chin Selection Permitted Signatures: Dispatcher [employer] EDDheeraj Anders MD MD cha Baxter, Heather RN RN Tatianna Clark RN RN vc1 Kayla Isaac PA-C PADevang sb4 Corrections: (The following items were deleted from the chart) 18:02 18:02 Spine Lumbar Wo [id number] ordered. [facility]
[2024-05-16 22:13] VITALS: TEMP 97.6
[2024-05-16 22:14] VITALS: BP 123/76; O2SAT 98
== END 2024-05-16 22:08 | disposition home or self-care (01) ==
LOC: ER 16:40
DX: S39.092A Other injury of muscle, fascia and tendon of lower back, initial encounter (principal); M62.830 Muscle spasm of back; S70.01XA Contusion of right hip, initial encounter; M54.31 Sciatica, right side; W22.8XXA Striking against or struck by other objects, initial encounter
CPT/HCPCS: 96361; 85025; 81001; 36415; 80053; 72131; 72170; 73502; 96375; 96374; 99284; J1100; J2405; J7030